=== PATIENT | male | born 1970 | race American Indian/Alaskan Native ===

== ENCOUNTER 2017-01-31 19:24 | Inpatient (IN) | payer MEDICAID, OTHER ==
[2017-01-31 19:24] VITALS: BMI 27.8
[2017-01-31 20:22] LABS: BASO # 0.1 K/uL (0.0-0.2); EOS # 0.1 K/uL (0.0-0.7); EOS % 2.3 % (0.0-4.0); HEMATOCRIT 43.7 % (35.0-51.0); LYMPH # 1.9 K/uL (1.0-4.3); LYMPH % 32.2 % (20.0-40.0); MEAN CELL VOLUME 89.5 fL (80.0-94.0); MEAN CORPUSCULAR HEMOGLOBIN 31.4 pg (27.0-31.0); MEAN PLATELET VOLUME 8.5 fL (7.2-11.7); MONO # 0.6 K/uL (0.0-0.8); MONO % 9.5 % (0.0-10.0); NRBC % 0.1 % (0.0-2.0); RED CELL DISTRIBUTION WIDTH 14.1 % (11.5-14.5)
[2017-01-31 20:55] LABS: CHLORIDE 98 mmol/L (98-107)
[2017-01-31 20:56] LABS: SODIUM 136 mmol/L (132-148)
[2017-01-31 20:58] LABS: GFR AFRICAN-AMERICAN > 60
[2017-01-31 20:59] LABS: ALB/GLOB RATIO 0.9 (1.0-2.1); ALKALINE PHOSPHATASE 74 U/L (38-126); ALT/SGPT 90 U/L (21-72); AST/SGOT 131 U/L (17-59); BLOOD UREA NITROGEN 13 mg/dL (9-20); CALCIUM 8.4 mg/dl (8.6-10.4); CARBON DIOXIDE 25 mmol/L (22-30); GLUCOSE,RANDOM 101 mg/dL (75-110); TOTAL PROTEIN 8.7 g/dL (6.3-8.3)
[2017-01-31 21:22] LABS: ALCOHOL SERUM 399 mg/dl (0-10)
--- NOTE | 2017-01-31 22:02 | C.PDOC ---
History Of Present Illness Pt is here requesting detox from alcohol and Heroin. Time Seen by Provider: 01/31/17 19:48 Chief Complaint (Nursing): Substance Abuse History Per: Patient History/Exam Limitations: intoxication Onset/Duration Of Symptoms: Days Current Symptoms Are (Timing): Still Present Suicide/Self Injury Attempted (Context): None Modifying Factor(s): Alcohol, Narcotics Severity: Moderate Associated Symptoms: denies: Suicidal Thoughts, Suicidal Plan Additional History Per: Prior Records Past Medical History Reviewed: Historical Data, Nursing Documentation, Vital Signs Vital Signs: Last Vital Signs Temp 98.6 F 02/01/17 06:15 Pulse 96 H 02/01/17 06:15 Resp 19 02/01/17 06:15 BP 154/95 H 02/01/17 06:15 Pulse Ox 96 02/01/17 06:15 - Medical History PMH: Anxiety, Depression, HTN, Hypercholesterolemia, Hyperlipidemia, Seizures ( absence seizures) - [facility] Procedures DETOXIFICATION SERVICES FOR SUBSTANCE ABUSE TREATMENT (03/07/15) INJECT/INFUSE ELECTROLYT (12/03/14) INJECT/INFUSE NEC (12/03/14) MEDS MGMT FOR SUBSTANCE ABUSE TREATMENT, OTH REPL MED (03/07/15) Family History: States: Unknown Family Hx - Social History Hx Tobacco Use: Yes Hx Alcohol Use: Yes Hx Substance Use: Yes (Snorts Heroin.) - Immunization History Hx Tetanus Toxoid Vaccination: No Hx Influenza Vaccination: No Hx Pneumococcal Vaccination: No Review Of Systems Constitutional: Negative for: Fever Cardiovascular: Negative for: Chest Pain Respiratory: Negative for: Shortness of Breath, Hemoptysis Musculoskeletal: Negative for: Neck Pain Neurological: Negative for: Weakness, Numbness Physical Exam - Physical Exam Appears: No Acute Distress, Other (AOB, intoxicated) Skin: Normal Color, Warm, Dry Head: Atraumatic, Normacephalic Eye(s): bilateral: PERRL Neck: Normal ROM, No Step Off Deformity, Supple Cardiovascular: Rhythm Regular Respiratory: Normal Breath Sounds, No Accessory Muscle Use Gastrointestinal/Abdominal: Soft Extremity: Normal ROM, No Deformity Neurological/Psych: Oriented x3, No Normal Speech (slurred), Normal Motor, Normal Sensation ED Course And Treatment - Laboratory Results Result Diagrams: 01/31/17 20:10 01/31/17 20:10 Interpretation Of Abnormal: Elevated alcohol level. O2 Sat by Pulse Oximetry: 96 Pulse Ox Interpretation: Normal Progress Note: Pt is medically stable for detox admission. Disposition Counseled Patient/Family Regarding: Studies Performed, Diagnosis - Disposition Disposition: HOSPITALIZED Disposition Time: 06:52 Condition: STABLE - Clinical Impression Clinical Impression: Alcohol use disorder, severe, dependence, Opioid use disorder, severe, dependence Decision To Admit - Pt Status Changed To: Hospital Disposition Of: Inpatient - Admit Certification Admit to Inpatient:: After my assessment, the patient will require hospitalization for at least two midnights. This is because of the severity of symptoms shown, intensity of services needed, and/or the medical risk in this patient being treated as an outpatient. - InPatient: Physician Admission Certification: I certify that this patient requires 2 or more midnights of care for the following reason:: Detox. - . Bed Request Type: Detox Admitting Physician: Jonny Canas Patient Diagnosis: Alcohol use disorder, severe, dependence, Opioid use disorder, severe, dependence
[2017-01-31 22:40] LABS: URINE BILIRUBIN NEGATIVE (NEGATIVE); URINE COLOR Straw (YELLOW); URINE GLUCOSE (UA) NORMAL (Normal); URINE KETONE NEGATIVE (NEGATIVE); URINE LEUKOCYTE ESTERASE NEG Leu/uL (Negative); URINE PROTEIN 2+ mg/dL (NEGATIVE); URINE UROBILINOGEN NORMAL mg/dL (0.2-1.0); WBC URINE < 1 /hpf (0-5)
[2017-01-31 22:43] LABS: URINE BLOOD TRACE (NEGATIVE)
--- NOTE | 2017-02-01 08:46 | PCM.BM ---
<Domi Canada - Last Filed: 02/01/17 08:43> Treatment Plan Problems - Problems identified on initial assessmt potential for alcohol withdrawals Date Initiated: 02/01/17 Assessment reference: NA Status: Active potential for opiate withdrawals Date Initiated: 02/01/17 Assessment reference: NA Status: Active Treatment assets and liabiliti Patient Assests: adapts well, cooperative, ADL independent, negotiates basic needs Patient Liabilities: substance abuse, other - Milieu Protocol Maintain good personal hygiene: daily Encourage regular showers, daily Remind patient to perform daily oral care, daily Assist patient to perform ADL's Conduct patient checks and document Observation sheet: Q15 minutes Maintain personal safety: every shift Educate patient to report safety concerns to staff, every shift Monitor environment for contraband/sharps Medication safety: Monitor for expected outcome, potential side effects: every shift, Assess barriers to learning: every shift, Assess readiness for medication education: every shift <Tree Wong - Last Filed: 02/02/17 23:49> - Diagnosis (1) Alcohol use disorder, severe, dependence Status: Acute Interventions: 02/02/17 23:49 * Assess 7x/week regarding severity of withdrawal * Educate regarding risks, benefits, side effects and alternatives of medications * Use Motivational Interviewing for abstinence * Use CBT for relapse prevention * Medication management for withdrawal symptoms * Encourage medication assisted treatment * (2) Opioid use disorder, severe, dependence Status: Acute Interventions: 02/02/17 23:49 * Assess 7x/week regarding severity of withdrawal * Educate regarding risks, benefits, side effects and alternatives of medications * Use Motivational Interviewing for abstinence * Use CBT for relapse prevention * Medication management for withdrawal symptoms * Encourage medication assisted treatment *
[2017-02-01] MEDS ORDERED: Buprenorphine Hydrochloride 2 mg SL ONE (08:53)
[2017-02-01] MEDS: Multiple Vitamins Tab PO SCH (10:43)
--- NOTE | 2017-02-01 13:48 | RAD ---
PROCEDURE: Radiographs of the Sacrum and Coccyx HISTORY: Fell on his sacrum last week. has pain COMPARISON: None available. TECHNIQUE: Frontal and lateral views of the sacrum and coccyx Noted- is increased concavity on lateral views of the superior L5 endplate ; less impressive on the frontal view. This could be prominent Schmorl's nodes indentation and projectional effects. A mild compression deformity of the superior endplate without gross retropulsion of ossific fragments into the spinal canal cannot be excluded. FINDINGS: BONES: Sacrum and coccyx alignment is within normal variation limits. No fracture or focal lesion. SACROILIAC JOINTS: Unremarkable. OTHER FINDINGS: None. IMPRESSION: The sacrococcygeal junction alignment is within normal variation limits. No definitive fracture of the sacrum or coccyx noted. Noted- is increased concavity on lateral views of the superior L5 endplate less impressive on the frontal view. This could be prominent Schmorl's nodes indentation and projectional effects. However a mild compression deformity of the superior endplate without gross retropulsion of ossific fragments into the spinal canal cannot be excluded. If the pay patient has outside studies -comparison would be helpful in assessing stability of this appearance of L5.
--- NOTE | 2017-02-01 13:50 | CP.PCM.CON ---
Addendum entered and electronically signed by Roula Gibbons DO 02/01/17 14: 06: Patient denies any history of absence seizures or any seizures at all. Original Note: <Roula Gibbons - Last Filed: 02/01/17 13:45> History of Present Illness - History of Present Illness History of Present Illness: CC: "my blood pressure is high" HPI: Patient is a 46 year old male with PMHx of alcohol abuse, heroin abuse, tobacco abuse, HTN and hyperlipidemia admitted to detox who has been experiencing high blood pressures. He says he does not take his BP at home. He does not take any antihypertensives at home although he says he is supposed to. Patient reports shakiness. Patient denies headache, blurry vision, chest pain, SOB, abdominal pain, diarrhea, nausea, vomiting, dysuria, hematuria. PMD: patient does not know name; he says he is on [address] in [place] PMHx: as above PSHx: denies Family Hx: grandmother had GA at 52, no CVA or CA in family Social History: smoked 1 pack of cigarettes per day for the past 13 years, drinks eight 24oz cans per day (last drink 6pm on 01/31), snorts 13 bags of heroin per day for 13 years (last snort 3pm on 01/31) Review of Systems - Constitutional Constitutional: Weakness. absent: Chills, Fever - EENT Eyes: absent: Blurred Vision, Change in Vision Ears: absent: Dizziness - Cardiovascular Cardiovascular: absent: Chest Pain - Respiratory Respiratory: absent: Dyspnea - Gastrointestinal Gastrointestinal: absent: Abdominal Pain, Nausea, Vomiting - Genitourinary Genitourinary: absent: Dysuria - Musculoskeletal Musculoskeletal: absent: Back Pain - Integumentary Integumentary: absent: Rash - Neurological Neurological: Weakness Additional comments: shakiness - Psychiatric Psychiatric: absent: Homicidal Ideation, Suicidal Ideation - Hematologic/Lymphatic Hematologic: absent: Easy Bleeding, Easy Bruising Past Patient History - Infectious Disease Hx of Infectious Diseases: None - Past Medical History & Family History Past Medical History?: Yes Pertinent Family History: grandmother had GA at 52, no CVA or CA in family - Past Social History Smoking Status: Heavy Smoker > 10 Cigarettes Daily Alcohol: > 2 Drinks/Day Drugs: Opiates Home Situation {Lives}: Other (girlfriend) - CARDIAC Hx Hypercholesterolemia: Yes Hx Hypertension: Yes - PULMONARY Hx Respiratory Disorders: No - NEUROLOGICAL Hx Seizures: Yes (absence seizures) - HEENT Hx HEENT Problems: No - RENAL Hx Chronic Kidney Disease: No - ENDOCRINE/METABOLIC Hx Endocrine Disorders: No - HEMATOLOGICAL/ONCOLOGICAL Hx Blood Disorders: No - INTEGUMENTARY Hx Dermatological Problems: No - MUSCULOSKELETAL/RHEUMATOLOGICAL Hx Musculoskeletal Disorders: No Hx Falls: Yes - GASTROINTESTINAL Hx Gastrointestinal Disorders: No - GENITOURINARY/GYNECOLOGICAL Hx Genitourinary Disorders: No - PSYCHIATRIC Hx Anxiety: Yes Hx Depression: Yes Hx Substance Use: Yes (Snorts Heroin.) - SURGICAL HISTORY Hx Surgeries: No - ANESTHESIA Hx Anesthesia: No Meds Allergies/Adverse Reactions: Allergies Allergy/AdvReac Type Severity Reaction Status Date / Time No Known Allergies Allergy Verified 01/31/17 19:47 - Medications Medications: Current Medications Amlodipine Besylate (Norvasc) 5 mg PO DAILY [facility] Last Admin: 02/01/17 09:40 Dose: 5 mg Chlordiazepoxide (Librium) 25 mg PO Q6 [facility] PRN Reason: Taper Stop: 02/05/17 11:59 Last Admin: 02/01/17 11:31 Dose: 25 mg Chlordiazepoxide (Librium) 25 mg PO Q4H PRN PRN Reason: Alcohol Withdrawal Clonidine HCl (Catapres) 0.1 mg PO Q4H PRN PRN Reason: Symptoms of alcohol withdrawl Last Admin: 02/01/17 11:32 Dose: 0.1 mg Folic Acid (Folic Acid) 1 mg PO DAILY [facility] Last Admin: 02/01/17 10:43 Dose: Not Given Hydrochlorothiazide (Microzide) 12.5 mg PO DAILY [facility] Ibuprofen (Motrin Tab) 600 mg PO Q6H PRN PRN Reason: Pain, moderate (4-7) Lisinopril (Zestril) 20 mg PO DAILY [facility] Last Admin: 02/01/17 12:39 Dose: 20 mg Methadone HCl (Methadone) 20 mg PO Q24H [facility] PRN Reason: Taper Stop: 02/06/17 09:59 Last Admin: 02/01/17 10:41 Dose: 20 mg Multivitamins (Hexavitamin) 1 tab PO DAILY [facility] Last Admin: 02/01/17 10:43 Dose: Not Given Nicotine (Nicoderm Cq) 1 patch TD DAILY [facility] Last Admin: 02/01/17 10:41 Dose: 1 patch Pantoprazole Sodium (Protonix Ec Tab) 40 mg PO DAILY [facility] Thiamine HCl (Vitamin B1 Tab) 100 mg PO DAILY [facility] Last Admin: 02/01/17 10:43 Dose: Not Given Trazodone HCl (Desyrel) 100 mg PO HS PRN PRN Reason: Insomnia Physical Exam - Constitutional Appears: Non-toxic, No Acute Distress - Head Exam Head Exam: NORMAL INSPECTION - Eye Exam Eye Exam: EOMI - ENT Exam ENT Exam: Mucous Membranes Moist - Respiratory Exam Respiratory Exam: Clear to Auscultation Bilateral, NORMAL BREATHING PATTERN. absent: Rales, Rhonchi, Wheezes - Cardiovascular Exam Cardiovascular Exam: REGULAR RHYTHM, +S1, +S2. absent: Gallop, Rubs, Systolic Murmur - GI/Abdominal Exam GI & Abdominal Exam: Normal Bowel Sounds, Soft. absent: Distended, Firm, Tenderness - Extremities Exam Extremities exam: Negative for: pedal edema - Neurological Exam Neurological exam: Alert, Oriented x3 Additional comments: neg. asterixis, + tremor - Psychiatric Exam Psychiatric exam: Normal Affect, Normal Mood - Skin Skin Exam: Normal Color, Warm Results - Vital Signs Recent Vital Signs: Last Vital Signs Temp 98.0 F 02/01/17 13:06 Pulse 100 H 02/01/17 13:06 Resp 18 02/01/17 13:06 BP 152/95 H 02/01/17 13:06 Pulse Ox 98 02/01/17 13:06 - Labs Result Diagrams: 01/31/17 20:10 01/31/17 20:10 Labs: Laboratory Results - last 24 hr 01/31/17 01/31/17 01/31/17 20:10 20:10 22:35 WBC 6.0 RBC 4.88 Hgb 15.3 Hct 43.7 MCV 89.5 MCH 31.4 H MCHC 35.0 RDW 14.1 Plt Count 132 MPV 8.5 Neut % (Auto) 55.0 Lymph % (Auto) 32.2 [place] % (Auto) 9.5 Eos % (Auto) 2.3 Baso % (Auto) 1.0 Neut # 3.3 Lymph # 1.9 [place] # 0.6 Eos # 0.1 Baso # 0.1 Sodium 136 Potassium 4.0 Chloride 98 Carbon Dioxide 25 Anion Gap 17 BUN 13 Creatinine 1.0 Est GFR ( Amer) > 60 Est GFR (Non-Af Amer) > 60 Random Glucose 101 Calcium 8.4 L Total Bilirubin 1.0 AST 131 H ALT 90 H D Alkaline Phosphatase 74 Total Protein 8.7 H Albumin 4.2 Globulin 4.5 H Albumin/Globulin Ratio 0.9 L Urine Color Straw Urine Clarity Clear Urine pH 5.0 Ur Specific [place] 1.005 Urine Protein 2+ H Urine Glucose (UA) Normal Urine Ketones Negative Urine Blood Trace H Urine Nitrate Negative Urine Bilirubin Negative Urine Urobilinogen Normal Ur Leukocyte Esterase Neg Urine WBC (Auto) < 1 Urine Opiates Screen Urine Methadone Screen Ur Barbiturates Screen Ur Phencyclidine Scrn Ur Amphetamines Screen U Benzodiazepines Scrn U Oth Cocaine Metabols U Cannabinoids Screen Alcohol, Quantitative 399 H 01/31/17 22:35 WBC RBC Hgb Hct MCV MCH MCHC RDW Plt Count MPV Neut % (Auto) Lymph % (Auto) [place] % (Auto) Eos % (Auto) Baso % (Auto) Neut # Lymph # [place] # Eos # Baso # Sodium Potassium Chloride Carbon Dioxide Anion Gap BUN Creatinine Est GFR ( Amer) Est GFR (Non-Af Amer) Random Glucose Calcium Total Bilirubin AST ALT Alkaline Phosphatase Total Protein Albumin Globulin Albumin/Globulin Ratio Urine Color Urine Clarity Urine pH Ur Specific [place] Urine Protein Urine Glucose (UA) Urine Ketones Urine Blood Urine Nitrate Urine Bilirubin Urine Urobilinogen Ur Leukocyte Esterase Urine WBC (Auto) Urine Opiates Screen Positive Urine Methadone Screen Negative Ur Barbiturates Screen Negative Ur Phencyclidine Scrn Negative Ur Amphetamines Screen Negative U Benzodiazepines Scrn Negative U Oth Cocaine Metabols Negative U Cannabinoids Screen Negative Alcohol, Quantitative Assessment & Plan - Assessment and Plan (Free Text) Assessment: Uncontrolled Hypertension Norvasc 5mg PO daily - increasing to Norvasc 10 daily Lisinopril 20mg PO daily started 02/01 Goal of SBP between 135 and 144 in next 24 hours (20-25% decrease in SBP/day) F/U EKG Transaminitis likely secondary to alcohol abuse 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 trend Hyperlipidemia F/U lipid panel Will continue to hold simvastatin as patient's LFTs are elevated Alcohol withdrawal Management as per Psych team Heroin withdrawal Management as per Psych team Nicotine withdrawal Management as per Psych team Prophylaxis Activity as tolerated Protonix 40mg PO daily <Borker,Alfreda V - Last Filed: 02/01/17 22:40> Meds - Medications Medications: Current Medications Al Hydrox/Mg Hydrox/Simethicone (Maalox 30 Ml) 30 ml PO TID PRN PRN Reason: Indigestion / Heartburn Amlodipine Besylate (Norvasc) 10 mg PO DAILY [facility] Benzocaine/Menthol (Cepacol Sore Throat) 1 shayy MT Q2 PRN PRN Reason: Sore Throat Last Admin: 02/01/17 22:21 Dose: 1 shayy Chlordiazepoxide (Librium) 25 mg PO Q6 [facility] PRN Reason: Taper Stop: 02/05/17 11:59 Last Admin: 02/01/17 17:12 Dose: 25 mg Chlordiazepoxide (Librium) 25 mg PO Q4H PRN PRN Reason: Alcohol Withdrawal Last Admin: 02/01/17 19:28 Dose: 25 mg Clonidine HCl (Catapres) 0.1 mg PO Q4H PRN PRN Reason: Symptoms of alcohol withdrawl Last Admin: 02/01/17 17:12 Dose: 0.1 mg Dicyclomine HCl (Bentyl) 10 mg PO Q6H PRN PRN Reason: spasms Last Admin: 02/01/17 19:55 Dose: 10 mg Folic Acid (Folic Acid) 1 mg PO DAILY [facility] Last Admin: 02/01/17 10:43 Dose: Not Given Ibuprofen (Motrin Tab) 600 mg PO Q6H PRN PRN Reason: Pain, moderate (4-7) Lisinopril (Zestril) 20 mg PO DAILY [facility] Last Admin: 02/01/17 12:39 Dose: 20 mg Loperamide HCl (Imodium) 2 mg PO Q8 PRN PRN Reason: Diarrhea Last Admin: 02/01/17 19:55 Dose: 2 mg Methadone HCl (Methadone) 20 mg PO Q24H [facility] PRN Reason: Taper Stop: 02/06/17 09:59 Last Admin: 02/01/17 10:41 Dose: 20 mg Multivitamins (Hexavitamin) 1 tab PO DAILY [facility] Last Admin: 02/01/17 10:43 Dose: Not Given Nicotine (Nicoderm Cq) 1 patch TD DAILY [facility] Last Admin: 02/01/17 10:41 Dose: 1 patch Ondansetron HCl (Zofran Tab) 4 mg PO Q8 PRN PRN Reason: Nausea/Vomiting Last Admin: 02/01/17 19:55 Dose: 4 mg Pantoprazole Sodium (Protonix Ec Tab) 40 mg PO DAILY [facility] Thiamine HCl (Vitamin B1 Tab) 100 mg PO DAILY [facility] Last Admin: 02/01/17 10:43 Dose: Not Given Trazodone HCl (Desyrel) 100 mg PO HS PRN PRN Reason: Insomnia Results - Vital Signs Recent Vital Signs: Last Vital Signs Temp 98.3 F 02/01/17 19:33 Pulse 120 H 02/01/17 20:57 Resp 20 02/01/17 20:57 BP 156/103 H 02/01/17 20:57 Pulse Ox 98 02/01/17 19:33 - Labs Result Diagrams: 01/31/17 20:10 01/31/17 20:10 Labs: Laboratory Results - last 24 hr 01/31/17 01/31/17 02/01/17 22:35 22:35 21:55 Urine Color Straw Urine Clarity Clear Urine pH 5.0 Ur Specific [place] 1.005 Urine Protein 2+ H Urine Glucose (UA) Normal Urine Ketones Negative Urine Blood Trace H Urine Nitrate Negative Urine Bilirubin Negative Urine Urobilinogen Normal Ur Leukocyte Esterase Neg Urine WBC (Auto) < 1 Urine Opiates Screen Positive Urine Methadone Screen Negative Ur Barbiturates Screen Negative Ur Phencyclidine Scrn Negative Ur Amphetamines Screen Negative U Benzodiazepines Scrn Negative U Oth Cocaine Metabols Negative U Cannabinoids Screen Negative Grp A Beta Strep Ag Negative Attending/Attestation - Attestation I have personally seen and examined this patient.: Yes I have fully participated in the care of the patient.: Yes I have reviewed all pertinent clinical information: Yes Notes (Text): Patient seen, examined, and case discussed with day-time resident. Patient seen at approximately 12:10PM on the detox unit. Medicine consulted for uncontrolled blood pressure. Patient has history of hypertension, noncompliant on anti- hypertensives. Patient is currently on the detox unit for alcohol and heroin withdrawal; patient has received two doses of Clonidine 0.1mg PO, Librium, Ativan prior to my arrival. Per review hx of absence seizures, but patient denies at bedside. Patient's repeat blood presure in 150/90s which is improved from 180s/110s from earlier this morning. Patient denies headache, denies chest pains, denies palpitations, reports he urinates and has proper bowel movement. Last alcohol consumed around 6pm and heroin use around 3am. Patient reports he takes "bricks" of [place] heroin. Assessment/Plan 1) Uncontrolled Hypertension * History of noncompliance on PO antihypertensives * Given two doses of Norvasc 5mg today--> Increased to Norvasc 10 daily tomorrow * Lisinopril 20mg PO daily started 02/01 * Goal of SBP between 135 and 144 in next 24 hours (20-25% decrease in SBP/day) * F/U EKG check for LVH in light of hypertension * Held thiazide diuretic given patient appears clinically dry * Note: patient is also on Clonidine 0.1mg PO Q4 PRN symptoms of withdrawal 2) Transaminitis * likely secondary to alcohol abuse * F/U hepatitis panel * Monitor trend * Note: patient is on librium taper for alcohol withdrawal 3) Hyperlipidemia * F/U lipid panel * Will continue to hold simvastatin as patient's LFTs are elevated 4) Alcohol withdrawal * Management as per Psych team (librium taper) 5) Heroin withdrawal * Management as per Psych team (methadone taper) 6) Nicotine withdrawal * Management as per Psych team 7) Prophylaxis * Activity as tolerated * Protonix 40mg PO daily
[2017-02-01] MEDS ORDERED: Aluminum Hydroxide/Magnesium Hydroxide Susp (30 mL) PO PRN (19:48)
[2017-02-01] MEDS ORDERED: Benzocaine/Menthol (Cepacol) Lozenge MT PRN (21:55)
--- NOTE | 2017-02-01 22:01 | CP.PCM.PN ---
Subjective - Date & Time of Evaluation Date of Evaluation: 02/01/17 Time of Evaluation: 21:57 - Subjective Subjective: Patient was seen and examined at bedside. Patient states he just started to have a sore throat. States it hurts when he swallows. Patient states he did not eat his dinner and has been drinking some orange juice. He denies any allergies or fever. Objective - Vital Signs/Intake and Output Vital Signs (last 24 hours): Temp Pulse Resp BP Pulse Ox 98.3 F 120 H 20 156/103 H 98 02/01/17 19:33 02/01/17 20:57 02/01/17 20:57 02/01/17 20:57 02/01/17 19:33 - Medications Medications: Current Medications Al Hydrox/Mg Hydrox/Simethicone (Maalox 30 Ml) 30 ml PO TID PRN PRN Reason: Indigestion / Heartburn Amlodipine Besylate (Norvasc) 10 mg PO DAILY [facility] Benzocaine/Menthol (Cepacol Sore Throat) 1 shayy MT Q2 PRN PRN Reason: Sore Throat Chlordiazepoxide (Librium) 25 mg PO Q6 [facility] PRN Reason: Taper Stop: 02/05/17 11:59 Last Admin: 02/01/17 17:12 Dose: 25 mg Chlordiazepoxide (Librium) 25 mg PO Q4H PRN PRN Reason: Alcohol Withdrawal Last Admin: 02/01/17 19:28 Dose: 25 mg Clonidine HCl (Catapres) 0.1 mg PO Q4H PRN PRN Reason: Symptoms of alcohol withdrawl Last Admin: 02/01/17 17:12 Dose: 0.1 mg Dicyclomine HCl (Bentyl) 10 mg PO Q6H PRN PRN Reason: spasms Last Admin: 02/01/17 19:55 Dose: 10 mg Folic Acid (Folic Acid) 1 mg PO DAILY [facility] Last Admin: 02/01/17 10:43 Dose: Not Given Ibuprofen (Motrin Tab) 600 mg PO Q6H PRN PRN Reason: Pain, moderate (4-7) Lisinopril (Zestril) 20 mg PO DAILY [facility] Last Admin: 02/01/17 12:39 Dose: 20 mg Loperamide HCl (Imodium) 2 mg PO Q8 PRN PRN Reason: Diarrhea Last Admin: 02/01/17 19:55 Dose: 2 mg Methadone HCl (Methadone) 20 mg PO Q24H [facility] PRN Reason: Taper Stop: 02/06/17 09:59 Last Admin: 02/01/17 10:41 Dose: 20 mg Multivitamins (Hexavitamin) 1 tab PO DAILY [facility] Last Admin: 02/01/17 10:43 Dose: Not Given Nicotine (Nicoderm Cq) 1 patch TD DAILY [facility] Last Admin: 02/01/17 10:41 Dose: 1 patch Ondansetron HCl (Zofran Tab) 4 mg PO Q8 PRN PRN Reason: Nausea/Vomiting Last Admin: 02/01/17 19:55 Dose: 4 mg Pantoprazole Sodium (Protonix Ec Tab) 40 mg PO DAILY [facility] Thiamine HCl (Vitamin B1 Tab) 100 mg PO DAILY [facility] Last Admin: 02/01/17 10:43 Dose: Not Given Trazodone HCl (Desyrel) 100 mg PO HS PRN PRN Reason: Insomnia - Labs Labs: 01/31/17 20:10 01/31/17 20:10 - Constitutional Appears: In Acute Distress - Head Exam Head Exam: ATRAUMATIC, NORMAL INSPECTION, NORMOCEPHALIC - ENT Exam ENT Exam: Mucous Membranes Moist. absent: Normal Oropharynx (red, erythematous , no pus visualized but difficult to see as patient kept gagging with tongue depressor ) - Neck Exam Neck Exam: Lymphadenopathy. absent: Tenderness - Respiratory Exam Respiratory Exam: Clear to Ausculation Bilateral, NORMAL BREATHING PATTERN. absent: Rales, Rhonchi, Wheezes - Cardiovascular Exam Cardiovascular Exam: REGULAR RHYTHM, +S1, +S2 - GI/Abdominal Exam GI & Abdominal Exam: Soft, Normal Bowel Sounds. absent: Tenderness - Extremities Exam Extremities Exam: Normal Inspection. absent: Pedal Edema, Tenderness - Neurological Exam Neurological Exam: Alert, Awake, Oriented x3 Assessment and Plan - Assessment and Plan (Free Text) Assessment: Sore Throat - Cepacol Sore Throat PRN - f/u x-ray of neck soft tissue - f/u rapid strep - Recommend possible ENT consult if pain progresses Case discussed with Dr. Katerina Le, PGY-1
[2017-02-02 08:41] LABS: BASO # 0.1 K/uL (0.0-0.2); BASO % 0.7 % (0.0-2.0); EOS % 0.3 % (0.0-4.0); HEMATOCRIT 56.6 % (35.0-51.0); LYMPH # 1.1 K/uL (1.0-4.3); LYMPH % 8.8 % (20.0-40.0); MEAN CELL VOLUME 90.5 fL (80.0-94.0); MEAN CORPUSCULAR HEMOGLOBIN 31.4 pg (27.0-31.0); MEAN CORPUSCULAR HGB CONC 34.7 g/dL (33.0-37.0); MEAN PLATELET VOLUME 9.6 fL (7.2-11.7); MONO # 1.3 K/uL (0.0-0.8); MONO % 10.2 % (0.0-10.0); NRBC % 0.2 % (0.0-2.0); PLATELET COUNT 163 K/uL (130-400); RED CELL DISTRIBUTION WIDTH 13.8 % (11.5-14.5)
[2017-02-02 08:53] LABS: WHITE BLOOD COUNT 12.2 K/uL (4.8-10.8)
[2017-02-02 09:05] LABS: POTASSIUM 3.9 mmol/L (3.6-5.2)
[2017-02-02 09:07] LABS: ALB/GLOB RATIO 0.9 (1.0-2.1); BILIRUBIN,TOTAL 2.5 mg/dL (0.2-1.3); TOTAL PROTEIN 8.8 g/dL (6.3-8.3)
[2017-02-02 09:08] LABS: CALCIUM 9.7 mg/dl (8.6-10.4)
[2017-02-02 09:34] LABS: NEUTROPHIL 78 % (50-75); REACTIVE LYMPHOCYTES 2 % (0-0); TOTAL CELLS COUNTED 100
[2017-02-02] MEDS ORDERED: Pantoprazole 40 mg EC Tab PO SCH (10:00)
--- NOTE | 2017-02-02 10:01 | RAD ---
PROCEDURE: Radiographs of the neck (soft tissue). HISTORY: sore throat COMPARISON: None. TECHNIQUE: Frontal and Lateral Radiographs of the neck, optimized for soft tissue visualization. FINDINGS: SOFT TISSUES: The epiglottis appears thickened and epiglottitis is not completely excluded. Clinically correlate. The frontal view appears normal nevertheless. The pharyngeal airway appears widely patent as well as the trachea and upper mid larynx level. No definitive retained radiodense foreign body is appreciated this time. Clinically correlate further. CT is available for further evaluation of clinically warranted (with contrast). CERVICAL SPINE: Multilevel cervical spondylosis is incidentally noted. OTHER FINDINGS: None. IMPRESSION: A thickened epiglottis is suggested in the lateral view only. Clinically correlate for potential epiglottitis. CT is available for further characterization if clinically warranted. Remainder the examination is unremarkable.
[2017-02-02] MEDS: Multiple Vitamins Tab PO SCH (10:32)
[2017-02-02] MEDS ORDERED: Piperacill/Tazo 2.25gm in Dex 2.25 GM/50 ML BAG IVPB STA (13:08)
--- NOTE | 2017-02-02 13:13 | PCM.PYCHPN ---
Psychiatric Progress Note - Psychiatric Progress Note Patient seen today, length of contact: 16 min Patient Chief Complaint: "Not well" Problems Identified/Issues Discussed: The pt is seen, chart reviewed, case discussed with staff. The pt is compliant with medications and reports no side-effects. Symptoms are improving but needs more time to stabilize. After care discussed, support and psychoeducation given. However he is transferred to medicine due to likely clot And last night he had many more wdw sxs and so he got 2 more 5 mg methaodne but he likely threw up one of them Medication Change: Yes Medical Record Reviewed: Yes Mental Status Examination - Cognitive Function Orientation: Person, Place, Situation, Time Memory: Intact Attention: WNL Concentration: Poor Association: WNL Fund of Knowledge: WNL - Mood Mood: Anxious - Affect Affect: Constricted - Speech Speech: Appropriate - Formal Thought Process Formal Thought Process: No Impairment - Suicidal Ideation Suicidal Ideation: No - Homicidal Ideation Homicidal Ideation: No Goal/Treatment Plan - Goal/Treatment Plan Need for Continued Stay: Discharge may exacerbated symptoms, Severe functional impairment, Other (medical) Progress Toward Problem(s) and Goals/Treatment Plan: Methadone detox adjusted As needed medications Attend groups and activities Supportive therapy and psychoeducation [place] for abstinence CBT for relapse prevention Encourage MAT Refer to rehab or IOP Attend self-help groups as well
[2017-02-02 14:14] LABS: HEMATOCRIT 56.3 % (35.0-51.0); MEAN CELL VOLUME 90.8 fL (80.0-94.0); MEAN CORPUSCULAR HEMOGLOBIN 31.1 pg (27.0-31.0); MEAN CORPUSCULAR HGB CONC 34.3 g/dL (33.0-37.0); MEAN PLATELET VOLUME 9.8 fL (7.2-11.7); RED CELL DISTRIBUTION WIDTH 13.9 % (11.5-14.5); WHITE BLOOD COUNT 13.2 K/uL (4.8-10.8)
[2017-02-02 14:32] LABS: POTASSIUM 3.6 mmol/L (3.6-5.2)
[2017-02-02 14:34] LABS: BILIRUBIN,TOTAL 2.4 mg/dL (0.2-1.3); TOTAL PROTEIN 8.9 g/dL (6.3-8.3)
[2017-02-02 14:35] LABS: CALCIUM 9.8 mg/dl (8.6-10.4)
[2017-02-02 15:01] LABS: ALB/GLOB RATIO 0.9 (1.0-2.1)
[2017-02-02] MEDS: Sodium Chloride 0.9% 1,000 ML IV SCH ×2 (15:23→23:15)
[2017-02-02] MEDS ORDERED: Sodium Chloride 0.9% 1,000 ML IV ONE (18:01)
--- NOTE | 2017-02-02 18:12 | CP.PCM.PN ---
<Alexey Lakhani - Last Filed: 02/02/17 18:08> Subjective - Date & Time of Evaluation Date of Evaluation: 02/02/17 Time of Evaluation: 13:30 - Subjective Subjective: Patient has been seen and examined. Patient reported episodes of non-bloody diarrhea and vomiting(7 times) last night. Currently complains of mild left sided abdominal pain. Continues to complain of sore throat and dysphagia which have both improved from yesterday. Denies any SOB, Chills, Fever. Objective - Vital Signs/Intake and Output Vital Signs (last 24 hours): Temp Pulse Resp BP Pulse Ox 98.4 F 102 H 18 93/65 L 97 02/02/17 13:36 02/02/17 13:36 02/02/17 13:36 02/02/17 13:36 02/02/17 13:36 Intake and Output: 02/02/17 02/02/17 06:59 18:59 Intake Total 100 Balance 100 - Medications Medications: Current Medications Al Hydrox/Mg Hydrox/Simethicone (Maalox 30 Ml) 30 ml PO TID PRN PRN Reason: Indigestion / Heartburn Amlodipine Besylate (Norvasc) 5 mg PO DAILY [facility] Benzocaine/Menthol (Cepacol Sore Throat) 1 shayy MT Q2 PRN PRN Reason: Sore Throat Last Admin: 02/01/17 22:21 Dose: 1 shayy Chlordiazepoxide (Librium) 25 mg PO Q4H PRN PRN Reason: Alcohol Withdrawal Last Admin: 02/02/17 15:28 Dose: 25 mg Chlordiazepoxide (Librium) 25 mg PO TID [facility] PRN Reason: Taper Stop: 02/05/17 02:59 Dicyclomine HCl (Bentyl) 10 mg PO Q6H PRN PRN Reason: spasms Last Admin: 02/01/17 19:55 Dose: 10 mg Folic Acid (Folic Acid) 1 mg PO DAILY [facility] Sodium Chloride (Sodium Chloride 0.9%) 1,000 mls @ 100 mls/hr IV .Q10H [facility] Last Admin: 02/02/17 15:23 Dose: 100 mls/hr Sodium Chloride (Sodium Chloride 0.9%) 1,000 mls @ 1,000 mls/hr IV .Q1H ONE Stop: 02/02/17 19:00 Piperacillin Sod/Tazobactam Sod (Zosyn 2.25 Gm Iv Premix) 2.25 gm in 50 mls @ 100 mls/hr IVPB Q8H [facility] Ibuprofen (Motrin Tab) 600 mg PO Q6H PRN PRN Reason: Pain, moderate (4-7) Loperamide HCl (Imodium) 2 mg PO Q8 PRN PRN Reason: Diarrhea Methadone HCl (Methadone) 15 mg PO Q24H [facility] PRN Reason: Taper Stop: 02/06/17 09:59 Last Admin: 02/02/17 10:34 Dose: 15 mg Multivitamins (Hexavitamin) 1 tab PO DAILY [facility] Nicotine (Nicoderm Cq) 1 patch TD DAILY [facility] Last Admin: 02/02/17 10:31 Dose: 1 patch Ondansetron HCl (Zofran Tab) 4 mg PO Q8 PRN PRN Reason: Nausea/Vomiting Pantoprazole Sodium (Protonix Ec Tab) 40 mg PO DAILY [facility] Thiamine HCl (Vitamin B1 Tab) 100 mg PO DAILY [facility] Trazodone HCl (Desyrel) 100 mg PO HS PRN PRN Reason: Insomnia - Labs Labs: 02/02/17 14:06 02/02/17 14:06 - Constitutional Appears: Non-toxic, Unkempt - Head Exam Head Exam: ATRAUMATIC, NORMAL INSPECTION, NORMOCEPHALIC - Eye Exam Eye Exam: EOMI, Normal appearance - ENT Exam ENT Exam: Mucous Membranes Dry - Respiratory Exam Respiratory Exam: Wheezes (b/l, expiratory, upper lungs. ), NORMAL BREATHING PATTERN. absent: Accessory Muscle Use - Cardiovascular Exam Cardiovascular Exam: RRR, +S1, +S2 - GI/Abdominal Exam GI & Abdominal Exam: Soft, Tenderness (LUQ, LLQ) - Extremities Exam Extremities Exam: absent: Pedal Edema - Psychiatric Exam Psychiatric exam: Depressed, Flat Affect - Skin Skin Exam: Normal Color Assessment and Plan - Assessment and Plan (Free Text) Assessment: 46 year old male admitted to detox unit for Alcohol/Heroin abuse/intoxication/ withdrawal. Medicine team was consulted on this case for evaluation and treatment of uncontrolled HTN. Plan: Uncontrolled Hypertension (resolved) decreased Norvasc from 10mg-5mg Daily discontinued Lisinopril due to patient being normotensive. Goal of SBP between 135 and 144 in next 24 hours (20-25% decrease in SBP/day) EKG read pending. Preliminary read shows no acute ST-T wave changes Sore Throat Rapid Strep (-) Soft Tissue Neck X-ray showed Possible Epiglottitis ENT consulted (Dr. Solorzano) throat culture pending results Cepacol Lozenges Started Zosyn Empirically (Day 1 today) Leukocytosis Stress reaction vs infection Throat cultures are pending Portable CXR pending read. On preliminary read I see no acute disease process Urine negative for Leuk Es and Nitrates Consider blood cultures Elevated HGB/HCT -HGB 19.7 and 19.3 today -like hemoconcentrated due to dehydration -transferred to floor -IV fluids Transaminitis (improving) likely secondary to alcohol abuse Hepatitis panel negative trending down Hyperlipidemia Lipid Panel: TG-161, Cholesterol - 313, LDL - 187, HDL - 125 Will continue to hold simvastatin as patient's LFTs are elevated Alcohol withdrawal Management as per Psych team Heroin withdrawal Management as per Psych team Nicotine withdrawal Management as per Psych team Prophylaxis Activity as tolerated Protonix 40mg PO daily Patient seen and discussed with Attending Alexey Lakhani PGY1 Dispo: We will continue to follow. <Alfreda Harman V - Last Filed: 02/02/17 21:37> Objective - Vital Signs/Intake and Output Vital Signs (last 24 hours): Temp Pulse Resp BP Pulse Ox 98.6 F 98 H 20 109/76 98 02/02/17 16:00 02/02/17 16:00 02/02/17 16:00 02/02/17 16:00 02/02/17 16:00 Intake and Output: 02/02/17 02/03/17 18:59 06:59 Intake Total 100 Balance 100 - Medications Medications: Current Medications Acetaminophen (Tylenol 325mg Tab) 650 mg PO Q6 PRN PRN Reason: Pain, moderate (4-7) Al Hydrox/Mg Hydrox/Simethicone (Maalox 30 Ml) 30 ml PO TID PRN PRN Reason: Indigestion / Heartburn Amlodipine Besylate (Norvasc) 5 mg PO DAILY [facility] Benzocaine/Menthol (Cepacol Sore Throat) 1 shayy MT Q2 PRN PRN Reason: Sore Throat Last Admin: 02/01/17 22:21 Dose: 1 shayy Chlordiazepoxide (Librium) 25 mg PO Q4H PRN PRN Reason: Alcohol Withdrawal Last Admin: 02/02/17 15:28 Dose: 25 mg Chlordiazepoxide (Librium) 25 mg PO TID [facility] PRN Reason: Taper Stop: 02/05/17 02:59 Last Admin: 02/02/17 18:14 Dose: 25 mg Dicyclomine HCl (Bentyl) 10 mg PO Q6H PRN PRN Reason: spasms Last Admin: 02/01/17 19:55 Dose: 10 mg Folic Acid (Folic Acid) 1 mg PO DAILY [facility] Sodium Chloride (Sodium Chloride 0.9%) 1,000 mls @ 100 mls/hr IV .Q10H [facility] Last Admin: 02/02/17 15:23 Dose: 100 mls/hr Piperacillin Sod/Tazobactam Sod (Zosyn 2.25 Gm Iv Premix) 2.25 gm in 50 mls @ 100 mls/hr IVPB Q8H [facility] Last Admin: 02/02/17 20:39 Dose: 100 mls/hr Loperamide HCl (Imodium) 2 mg PO Q8 PRN PRN Reason: Diarrhea Methadone HCl (Methadone) 15 mg PO Q24H [facility] PRN Reason: Taper Stop: 02/06/17 09:59 Last Admin: 02/02/17 10:34 Dose: 15 mg Multivitamins (Hexavitamin) 1 tab PO DAILY [facility] Nicotine (Nicoderm Cq) 1 patch TD DAILY [facility] Last Admin: 02/02/17 10:31 Dose: 1 patch Ondansetron HCl (Zofran Tab) 4 mg PO Q8 PRN PRN Reason: Nausea/Vomiting Pantoprazole Sodium (Protonix Ec Tab) 40 mg PO DAILY [facility] Thiamine HCl (Vitamin B1 Tab) 100 mg PO DAILY [facility] Trazodone HCl (Desyrel) 100 mg PO HS PRN PRN Reason: Insomnia - Labs Labs: 02/02/17 14:06 02/02/17 14:06 Attending/Attestation - Attestation I have personally seen and examined this patient.: Yes I have fully participated in the care of the patient.: Yes I have reviewed all pertinent clinical information, including history, physical exam and plan: Yes Notes (Text): Patient seen, examined, and case discussed with day-time resident. Patient seen this morning on the detox floor. Patient is more awake and alert, reporting sore throat at bedside. Patient denies cough, denies coryza, reports vaccinations are uptodate, patient is NOT tripoding, able to articulate, speech does not appear impaired nor muffled. patient is on Librum and Methadone taper for both alcohol and heroin withdrawal respectively. Patient's soft tissue neck xray reported thicken epiglottis is suggested in lateral view only. CT is available for further characterization. Discussed case with ENT, Dr Solorzano, recommended for first Dose: decadron 10mg IV X1 and Zosyn IV stat. Patient transferred to regular/medical floor and started for IV antibiotics and IV fluids. ENT evaluated the patient, patient refused flexible larynoscopy with ENT. CT neck ordered. CT neck resulted later in evening indicating no epiglottis and tonsillitis; informed ENT in regards to CT result this evening. Discontinue anti-hypertensive medications (did not receive today) given patient' s blood pressure normalized rather quickly; d/c Clonidine PRN and held antihypertensive medications. patient is currently on IV abx. Patient's blood works this morning appeared abnormal and repeat again this morning; suspecting hemoconcentration. patient appears dehydrated and is having diarrhea likely due to heroin withdrawal. patient unable to have adequate PO intake of fluid given throat pain. Will start IV abx. Nephrology consult given acute rise in creatinine; will come and evaluate the patient. Assessment/Plan 1) Uncontrolled Hypertension-->normalized * History of noncompliance on PO antihypertensives * d/c anti-hypertensive and clonidine prn given blood pressure normalized quickly over twenty hours * Patient is on IV fluids-->appears dehydrated and fluid loss (diarrhea) secondary to withdrawal and inadequate PO intake * F/U EKG check for LVH in light of hypertension * Held thiazide diuretic given patient appears clinically dry 2) Transaminitis * likely secondary to alcohol abuse * hepatitis panel: negative * Monitor trend * Note: patient is on librium taper for alcohol withdrawal * Alcohol elevated 399 on admission 3) Hyperlipidemia * Lipid panel appears abnormal; will repeat when patient clinically hydrated * Will continue to hold simvastatin as patient's LFTs are elevated 4) Sore Throat; URI * ENT (Dr. Solorzano) on the case * Patient's soft tissue neck xray reported thicken epiglottis is suggested in lateral view only. CT is available for further characterization. * patient made NPO in light of soft tissue xray findings * Patient received first dose of Decadron 10mg IV x1, Zosyn (renal dose) X1 * Patient transferred out from the detox unit and on the regular floors; started on IV abx and IV fluids. * Rapid strep: negative * Repeat CT neck: negative for epiglottis/tonsillitis 5) Polycythemia * Possible hemoconcentration * Patient appears clinically dehydrated and having diarrhea losses * Labs values repeated show similar trend * Will check again in AM tomorrow after patient has received IV fluid 6) Acute renal Failure * Nephrology (Dr. Darron Walker) on consult-->discussed case with and will evaluate patient * Possible hemoconcentration * Patient appears clinically dehydrated and having diarrhea losses * Labs values repeated show similar trend * Will check again in AM tomorrow after patient has received IV fluid 7) Alcohol withdrawal * Management as per Psych team (librium taper) 8) Heroin withdrawal * Management as per Psych team (methadone taper) 9) Nicotine withdrawal * Management as per Psych team 10) Prophylaxis * Activity as tolerated * Protonix 40mg PO daily
[2017-02-02 18:34] VITALS: RESP 20
[2017-02-02] MEDS ORDERED: Piperacill/Tazo 3.375gm in Dex 3.375 GM/50 ML BAG IVPB SCH (19:30)
--- NOTE | 2017-02-02 19:56 | CT ---
EXAM: CT Neck Without Intravenous Contrast EXAM DATE/TIME: Exam ordered 02/02/2017 5:31 PM CLINICAL HISTORY: 46 years old, male; Pain; Throat pain; Additional info: Rule out epiglotitis TECHNIQUE: Axial computed tomography images of the neck without intravenous contrast. All CT scans at this facility use one or more dose reduction techniques, viz.: automated exposure control; ma/kV adjustment per patient size (including targeted exams where dose is matched to indication; i.e. head); or iterative reconstruction technique. Coronal and sagittal reformatted images were created and reviewed. COMPARISON: No relevant prior studies available. FINDINGS: Nasopharynx: Unremarkable. Oropharynx: Unremarkable. No significant tonsillar enlargement. Hypopharynx: Unremarkable. Larynx: Unremarkable. Normal epiglottis. Trachea: Unremarkable. Retropharyngeal space: Unremarkable. Submandibular/parotid glands: Unremarkable. Glands are normal in size. Thyroid: Unremarkable. No enlarged or calcified nodules. Bones/joints: There is a defect noted within the bone of the left anterior maxillary alveolar ridge adjacent to a tooth implant. No acute fracture. Soft tissues: Unremarkable. Vasculature: No acute findings. Lymph nodes: There are 2 less than 5 mm submental lymph nodes. There are subcentimeter perisubmandibular lymph nodes. There a few scattered posterior cervical lymph nodes measuring under a centimeter. Sinuses:Mild mucosal thickening is noted within the ethmoid air cells bilaterally. Lung apices: Unremarkable as visualized. IMPRESSION: 1. No evidence of low epiglottitis or tonsillitis. 2. Bony defect/resorption noted surrounding a implanted tooth in the left upper maxillary alveolar ridge. Bone defect could be postsurgical in nature or related to infection. Clinical correlation suggested. 3. Mucosal thickening in the ethmoid air cells bilaterally Images were attached to this report and are available at [email or web address]
[2017-02-02] MEDS: Piperacill/Tazo 2.25gm in Dex 2.25 GM/50 ML BAG IVPB SCH (20:39)
--- NOTE | 2017-02-02 23:12 | PCM.PSYCH ---
Initial Psychiatric Evaluation - Initial Psychiatric Evaluation Type of Admission: Voluntary Legal Status: Capacity Chief Complaint (in patient's own words): ""Heroin" History of Present Illness and Precipitating Events: THe pt is seen, chart reviewed and case discussed He is a 46 yo AAM, w 2 children, living with GF and is unemployed He uses 12-13 bags i.n. x 10 months but he first started when he was 12 y/o He drinks alcohol 9-10 of the 24 oz beers since age 17 He had abused xanax in the past Smokes 1 ppd cigarettes He denies psych sx He was in detox 4x and [facility] once in the past Past psych hx: Denies Medical hx: Back pain, HTN, high choles. Family psych hx: substance abuse in parents Current Medications: Active Medications Generic Name Dose Route Start Last Admin Trade Name Freq PRN Reason Stop Dose Admin Acetaminophen 650 mg 02/02/17 19:49 Tylenol 325mg Tab PO Q6 PRN Pain, moderate (4-7) Al Hydrox/Mg Hydrox/Simethicone 30 ml 02/01/17 19:48 Maalox 30 Ml PO TID PRN Indigestion / Heartburn Amlodipine Besylate 5 mg 02/03/17 10:00 Norvasc PO DAILY [facility] Benzocaine/Menthol 1 shayy 02/01/17 21:55 02/01/17 22:21 Cepacol Sore Throat MT 1 shayy Q2 PRN Administration Sore Throat Chlordiazepoxide 25 mg 02/02/17 14:57 02/02/17 15:28 Librium PO 25 mg Q4H PRN Administration Alcohol Withdrawal Chlordiazepoxide 25 mg 02/02/17 18:00 02/02/17 18:14 Librium PO 02/05/17 02:59 25 mg TID [facility] Administration Taper Dicyclomine HCl 10 mg 02/01/17 19:49 02/01/17 19:55 Bentyl PO 10 mg Q6H PRN Administration spasms Folic Acid 1 mg 02/03/17 10:00 Folic Acid PO DAILY [facility] Sodium Chloride 1,000 mls @ 100 mls/hr 02/02/17 13:15 02/02/17 15:23 Sodium Chloride 0.9% IV 100 mls/hr .Q10H [facility] Administration Piperacillin Sod/Tazobactam Sod 2.25 gm in 50 mls @ 100 mls/hr 02/02/17 19:00 02/02/17 20:39 Zosyn 2.25 Gm Iv Premix IVPB 100 mls/hr Q8H [facility] Administration Loperamide HCl 2 mg 02/02/17 15:13 Imodium PO Q8 PRN Diarrhea Methadone HCl 15 mg 02/01/17 10:00 02/02/17 10:34 Methadone PO 02/06/17 09:59 15 mg Q24H [facility] Administration Taper Multivitamins 1 tab 02/03/17 10:00 Hexavitamin PO DAILY [facility] Nicotine 1 patch 02/01/17 10:30 02/02/17 10:31 Nicoderm Cq TD 1 patch DAILY [facility] Administration Ondansetron HCl 4 mg 02/02/17 15:13 Zofran Tab PO Q8 PRN Nausea/Vomiting Pantoprazole Sodium 40 mg 02/03/17 10:00 Protonix Ec Tab PO DAILY [facility] Thiamine HCl 100 mg 02/03/17 10:00 Vitamin B1 Tab PO DAILY [facility] Trazodone HCl 100 mg 02/01/17 08:52 02/02/17 22:22 Desyrel PO 100 mg HS PRN Administration Insomnia Past Psychiatric History - Past Psychiatric History Previous Treatment History: None Pertinent Medical Hx (Current Medical&Sleep Prob, Allergies): Allergies Allergy/AdvReac Type Severity Reaction Status Date / Time No Known Allergies Allergy Verified 01/31/17 19:47 Folic Acid 1 mg PO DAILY 12/03/14 Hydrochlorothiazide [HCTZ] 12.5 mg PO DAILY 12/03/14 Lisinopril [Zestril] 20 mg PO DAILY 12/03/14 Simvastatin 20 mg PO DAILY 12/03/14 Thiamine [Thiamine HCl] 100 mg PO DAILY 12/03/14 Review of Systems - Neurological Neurological: UNREMARKABLE - Psychiatric Psychiatric: Abnormal Sleep Pattern, Anxiety. absent: Hallucinations, Homicidal Ideation, Paranoia, Suicidal Ideation Mental Status Examination - Personal Presentation Personal Presentation: Looks stated age - Affect Affect: Constricted - Motor Activity Motor Activity: Calm - Reliability in Providing Information Reliability in Providing Information: Good - Speech Speech: Organized - Mood Mood: Anxious - Formal Thought Process Formal Thought Process: No Impairment - Cognitive Functions Orientation: Person, Place, Situation, Time Sensorium: Alert Attention/Concentration: Attentive Estimate of Intelligence: Average Judgement: Intact, as evidence by: Insight regarding need for hospitalization Memory: Recent intact, as evidence by: Ability to recall events of the day, Remote intact, as evidenced by: Abilit to recall sig. life events - Risk Risk: Withdrawal, Diminished functioning - Strength & Assets Inventory Strength & Assets Inventory: Cooperative - Limitations Limitations: Other DSM 5 DX - DSM 5 DSM 5 Diagnosis: Opioid withdrawal Alcohol wiithdrawal Alcohol use d/o - severe opioid use d/o - severe - Recommended/Plan of Treatment Treatment Recommendations and Plan of Treatment: Methadone detox Librium detox As needed medications Gabapentin for augmentation Attend groups and activities Supportive therapy and psychoeducation [place] for abstinence CBT for relapse prevention Encourage MAT Refer to rehab or IOP Attend self-help groups as well 34 min Projected ELOS: 5-6 days Prognosis: good - Smoking Cessation Smoking Cessation Initiated: Yes
--- NOTE | 2017-02-02 23:47 | CARD ---
APPROVED REPORT EKG Measurement Heart [id number] <Conclusion> Normal sinus rhythm Nonspecific T wave abnormality Prolonged QT Abnormal ECG
--- NOTE | 2017-02-03 00:23 | CON ---
DATE: NEPHROLOGY CONSULTATION HISTORY OF PRESENT ILLNESS: This is a 46-year-old male with past medical history of alcohol abuse, substance abuse, hypertension and hyperlipidemia, initially, admitted to detoxing medicine service and initially consulted for high blood pressure. The patient subsequently found to have acute renal failure. Nephrology, therefore consulted. The patient reports having had nausea and vomiting as well as diarrhea throughout the day yesterday; reports about 6 to 8 episodes of vomiting, which turned bilious and also had in vomitus at one point; diarrhea was very watery, also about 6 to 8 episodes throughout the day yesterday. The patient also noted that he has not eaten since being admitted to detox 2 days ago. The patient also reported having dysphagia and odynophagia that has improved. Soft tissue neck x-ray was done that was possibly suggestive of epiglottitis. The patient also with mild hypotension and subsequently transferred to medicine floor. PAST MEDICAL HISTORY: As above, the patient with extensive heroin, alcohol and tobacco use. FAMILY HISTORY: SOCIAL HISTORY: As above. REVIEW OF SYSTEMS: CONSTITUTIONAL: Reports chills yesterday. No subjective fever. HEENT: As per HPI. No change in vision. RESPIRATORY: Reporting cough. CARDIOVASCULAR: Denies chest pain or palpitations. GASTROINTESTINAL: As per HPI. GENITOURINARY: Reports not urinating all day today. Denies any dysuria. MUSCULOSKELETAL: Reports having sustained a fall about 2 weeks ago landing on his back and having back pain since then. Denies using any pain medications. PSYCHIATRIC: Extensive substance abuse. NEUROLOGIC: Denies any headache or dizziness. LABORATORY DATA: This afternoon, CBC: WBC of 13.22, hemoglobin of 19.3, hematocrit of 56.3, and platelets of 163. Chemistry panel: Sodium of 133, potassium of 3.6, chloride of 94, bicarbonate of 23, BUN of 25, creatinine of 2.4, calcium of 9.8, and albumin of 4.3. PHYSICAL EXAMINATION: VITALS: Early this afternoon, blood pressure of 93/65, heart rate of 102, respirations of 18, temperature of 98.4, and O2 saturation of 97% on room air. Repeat blood pressure later this afternoon is 109/76 and heart rate is 98. GENERAL: No distress, conversing, coherently in full sentences. HEENT: Moist mucous membrane. Nonicteric. No cervical lymphadenopathy. NECK: Enlarged neck circumference. RESPIRATORY: Lungs are clear to auscultation bilaterally. No rales. No rhonchi. No wheezes. CARDIOVASCULAR: Muffled heart sounds. No obvious murmurs or gallops. Regular rate. GASTROINTESTINAL: Abdomen soft, nontender, and nondistended. GENITOURINARY: No bladder distention. EXTREMITIES: No leg edema. SKIN: Warm. No cyanosis. MUSCULOSKELETAL: Left-sided hematoma/swelling noted over left mid back, tender to palpation. PSYCHIATRIC: Normal mood and normal affect. NEUROLOGIC: No numbness in feet. The patient is alert and oriented. ASSESSMENT AND PLAN: 1. Acute kidney injury, likely prerenal etiology in the setting of profound gastrointestinal losses, volume depletion evidenced by mild hypotension, also markedly hemoconcentrated on CBC; -Obtaining urine lytes, urine sodium, creatinine and chloride. -Agree with volume repletion normal saline at 100 mL per hour. 2. Metabolic acidosis as evidenced by mildly increased anion gap likely due to ketosis, but should check lactate level for possible evidence of sepsis; also superimposed metabolic alkalosis in the setting of vomiting; -Continue intravenous fluids as above. 3. Hypertension marked drop in blood pressure in the setting profound gastrointestinal losses, also contributing to acute kidney injury; the patient reports not being on any antihypertensive medications at home, started over here on lisinopril and amlodipine. Agree with holding blood pressure medications for now especially lisinopril, which causes loss of renal autoregulation and therefore amplifies prerenal acute kidney injury further. -Once the patient is volume replete, we recommend restarting slowly with amlodipine 5 mg daily. 4. SIRS/Sepsis - Started on zosyn 2.25 g q6h, may need to increase dose as renal function improves with IVF. Thank you for this consult. We will continue to follow closely. Darron Walker MD [email or web address]
[2017-02-03] MEDS: Sodium Chloride 0.9% 1,000 ML IV SCH ×4 (03:05→22:14)
[2017-02-03] MEDS: Piperacill/Tazo 2.25gm in Dex 2.25 GM/50 ML BAG IVPB SCH ×2 (03:06→10:32)
--- NOTE | 2017-02-03 04:41 | CON ---
DATE: 02/02/2017 HISTORY OF PRESENT ILLNESS: This is a gentleman who had a neck x-ray which showed possible epiglottitis. The patient does not complain of any shortness of breath at this point or throat pain. I tried to do a flexible laryngoscopy on the patient; however, he refused. Therefore, I am obtaining a CAT scan of his neck to see if he has epiglottitis, but now my suspicion for epiglottitis is very low since while supine he is breathing well. However, I will obtain a CAT of the neck without contrast to evaluate the size of the epiglottis. Bernardo Solorzano MD
--- NOTE | 2017-02-03 08:59 | RAD ---
Chest x-ray single frontal view History: Elevated white blood cell. Rales. Comparison: 02/02/2017 Findings: Biapical pleural thickening with upper lobe granulomatous changes. Mild venous congestion. Enlarged ectatic aorta. Top normal heart size. Degenerative changes in the spine and shoulders. Impression: Biapical pleural thickening with upper lobe granulomatous changes. Mild venous congestion. Enlarged ectatic aorta.
[2017-02-03 09:02] LABS: CREATININE, RANDOM URINE 145.3 mg/dL
[2017-02-03 09:04] LABS: RBC URINE 1 /hpf (0-3); URINE BILIRUBIN NEGATIVE (NEGATIVE); URINE BLOOD NEGATIVE (NEGATIVE); URINE COLOR Yellow (YELLOW); URINE GLUCOSE (UA) NORMAL (Normal); URINE KETONE NEGATIVE (NEGATIVE); URINE LEUKOCYTE ESTERASE NEG Leu/uL (Negative); URINE PROTEIN NEGATIVE (NEGATIVE); URINE UROBILINOGEN NORMAL mg/dL (0.2-1.0); WBC URINE 1 /hpf (0-5)
[2017-02-03] MEDS: Pantoprazole 40 mg EC Tab PO SCH (10:29)
[2017-02-03] MEDS: Multiple Vitamins Tab PO SCH (10:29)
[2017-02-03 11:54] LABS: RED CELL DISTRIBUTION WIDTH 13.9 % (11.5-14.5)
[2017-02-03 12:02] LABS: MEAN CELL VOLUME 90.2 fL (80.0-94.0); MEAN CORPUSCULAR HEMOGLOBIN 31.5 pg (27.0-31.0); MEAN CORPUSCULAR HGB CONC 34.9 g/dL (33.0-37.0); MEAN PLATELET VOLUME 9.7 fL (7.2-11.7); WHITE BLOOD COUNT 13.1 K/uL (4.8-10.8)
[2017-02-03 12:05] LABS: CHLORIDE 95 mmol/L (98-107); POTASSIUM 3.7 mmol/L (3.6-5.2); SODIUM 131 mmol/L (132-148)
[2017-02-03 12:07] LABS: ALB/GLOB RATIO 1.3 (1.0-2.1); ALKALINE PHOSPHATASE 61 U/L (38-126); AST/SGOT 54 U/L (17-59); BILIRUBIN,TOTAL 1.9 mg/dL (0.2-1.3); CARBON DIOXIDE 25 mmol/L (22-30); GFR AFRICAN-AMERICAN > 60
[2017-02-03 12:08] LABS: ALT/SGPT 52 U/L (21-72); BLOOD UREA NITROGEN 29 mg/dL (9-20); CALCIUM 8.6 mg/dl (8.6-10.4); GLUCOSE,RANDOM 93 mg/dL (75-110)
--- NOTE | 2017-02-03 13:39 | CP.PCM.PN ---
<CarlosmanjulaSimadavid - Last Filed: 02/03/17 18:59> Subjective - Date & Time of Evaluation Date of Evaluation: 02/03/17 Time of Evaluation: 07:15 - Subjective Subjective: Patient has been seen examined. No overnight events reported. He states that he no longer has throat pain and would like to be changed to regular diet. He states he feels well and would like to leave. Patient denies any fever, sob, chest pain, abdominal pain, n/v/d, constipation, or back pain. Objective - Vital Signs/Intake and Output Vital Signs (last 24 hours): Temp Pulse Resp BP Pulse Ox 98.4 F 84 20 98/64 L 98 02/02/17 23:25 02/02/17 23:25 02/02/17 23:25 02/02/17 23:25 02/02/17 23:25 Intake and Output: 02/03/17 02/03/17 06:59 18:59 Intake Total 920 Output Total 500 Balance 420 - Medications Medications: Current Medications Acetaminophen (Tylenol 325mg Tab) 650 mg PO Q6 PRN PRN Reason: Pain, moderate (4-7) Al Hydrox/Mg Hydrox/Simethicone (Maalox 30 Ml) 30 ml PO TID PRN PRN Reason: Indigestion / Heartburn Amlodipine Besylate (Norvasc) 5 mg PO DAILY [facility] Benzocaine/Menthol (Cepacol Sore Throat) 1 shayy MT Q2 PRN PRN Reason: Sore Throat Last Admin: 02/01/17 22:21 Dose: 1 shayy Chlordiazepoxide (Librium) 25 mg PO Q4H PRN PRN Reason: Alcohol Withdrawal Last Admin: 02/02/17 15:28 Dose: 25 mg Chlordiazepoxide (Librium) 25 mg PO BID [facility] PRN Reason: Taper Stop: 02/05/17 02:59 Last Admin: 02/03/17 10:29 Dose: 25 mg Dicyclomine HCl (Bentyl) 10 mg PO Q6H PRN PRN Reason: spasms Last Admin: 02/01/17 19:55 Dose: 10 mg Folic Acid (Folic Acid) 1 mg PO DAILY [facility] Last Admin: 02/03/17 10:29 Dose: 1 mg Piperacillin Sod/Tazobactam Sod (Zosyn 2.25 Gm Iv Premix) 2.25 gm in 50 mls @ 100 mls/hr IVPB Q8H [facility] Last Admin: 02/03/17 10:32 Dose: 100 mls/hr Sodium Chloride (Sodium Chloride 0.9%) 1,000 mls @ 150 mls/hr IV .Q6H40M [facility] Loperamide HCl (Imodium) 2 mg PO Q8 PRN PRN Reason: Diarrhea Methadone HCl (Methadone) 10 mg PO Q24H [facility] PRN Reason: Taper Stop: 02/06/17 09:59 Last Admin: 02/03/17 10:28 Dose: 10 mg Multivitamins (Hexavitamin) 1 tab PO DAILY [facility] Last Admin: 02/03/17 10:29 Dose: 1 tab Nicotine (Nicoderm Cq) 1 patch TD DAILY [facility] Last Admin: 02/02/17 10:31 Dose: 1 patch Ondansetron HCl (Zofran Tab) 4 mg PO Q8 PRN PRN Reason: Nausea/Vomiting Pantoprazole Sodium (Protonix Ec Tab) 40 mg PO DAILY [facility] Last Admin: 02/03/17 10:29 Dose: 40 mg Thiamine HCl (Vitamin B1 Tab) 100 mg PO DAILY [facility] Last Admin: 02/03/17 10:28 Dose: 100 mg Trazodone HCl (Desyrel) 100 mg PO HS PRN PRN Reason: Insomnia Last Admin: 02/02/17 22:22 Dose: 100 mg - Labs Labs: 02/03/17 11:44 02/03/17 11:44 - Constitutional Appears: Non-toxic - Head Exam Head Exam: ATRAUMATIC, NORMAL INSPECTION, NORMOCEPHALIC - Eye Exam Eye Exam: EOMI, Normal appearance - ENT Exam ENT Exam: Mucous Membranes Moist - Neck Exam Neck Exam: absent: Lymphadenopathy - Respiratory Exam Respiratory Exam: Clear to Ausculation Bilateral, NORMAL BREATHING PATTERN. absent: Stridor - Cardiovascular Exam Cardiovascular Exam: REGULAR RHYTHM, +S1, +S2. absent: Bradycardia, Tachycardia - GI/Abdominal Exam GI & Abdominal Exam: Soft, Normal Bowel Sounds. absent: Tenderness - Extremities Exam Extremities Exam: Normal Capillary Refill. absent: Pedal Edema - Neurological Exam Neurological Exam: Alert, Awake, Oriented x3 - Psychiatric Exam Psychiatric exam: Normal Affect, Normal Mood - Skin Skin Exam: Normal Color Assessment and Plan - Assessment and Plan (Free Text) Assessment: 46 year old male admitted to detox unit for Alcohol/Heroin abuse/intoxication/ withdrawal. Medicine team was consulted on this case for evaluation and treatment of uncontrolled HTN. Plan: Uncontrolled Hypertension (resolved) decreased Norvasc from 10mg-5mg Daily Held Lisinopril due to ADRIANA EKG read "NSR, non-specific t wave abnormality and prolong QT Sore Throat Rapid Strep (-) Soft Tissue Neck X-ray showed Possible Epiglottitis ENT consulted (Dr. Solorzano) throat culture pending results Cepacol Lozenges Started Zosyn Empirically (Day 2 today) Leukocytosis Likely Stress reaction Throat cultures negative Portable CXR read "Biapical pleural thickening with upper lobe granulomatous changes. Mild venous congestion, and enlarged ectatic aorta. Urine negative for Leuk Es and Nitrates WBC reduced from 13.2 to 13.1 Elevated HGB/HCT (Resolved) -15.7 today. -like hemoconcentrated due to dehydration -Cont. IV fluids Transaminitis (resolved) likely secondary to alcohol abuse Hepatitis panel negative Hyperlipidemia Lipid Panel: TG-161, Cholesterol - 313, LDL - 187, HDL - 125 Will continue to hold simvastatin as patient's LFTs are elevated Will restart statin tomorrow Alcohol withdrawal Management as per Psych team Heroin withdrawal Management as per Psych team Nicotine withdrawal Management as per Psych team Prophylaxis Activity as tolerated Protonix 40mg PO daily Patient seen and discussed with Attending Alexey Lakhani PGY1 Dispo: We will continue to follow. Will likely be discharged tomorrow after methadone dose. <Alfreda Harman V - Last Filed: 02/05/17 16:29> Objective - Vital Signs/Intake and Output Vital Signs (last 24 hours): Temp Pulse Resp BP Pulse Ox 98.3 F 85 20 145/94 H 98 02/04/17 08:04 02/04/17 09:15 02/04/17 08:04 02/04/17 09:15 02/04/17 09:15 - Labs Labs: 02/04/17 09:48 02/04/17 09:48 Attending/Attestation - Attestation I have personally seen and examined this patient.: Yes I have fully participated in the care of the patient.: Yes I have reviewed all pertinent clinical information, including history, physical exam and plan: Yes Notes (Text): This is late computer entry for 02/03/17. Patient seen, examined, and case discussed with day-time resident. Patient seen this morning on the regular floor with at bedside. Patient is more awake and alert, appears more hydrated, and reports he is feeling better. Patient is very eager to leave and had refused blood work this morning. Explained to the patient with his at bedside, we need the labs to watch in WBC in light of potential infection and his kidney numbers since it allows to see if kidney functions is improving or not. Upon explanation, patient reports he will allow blood work. Discussed with nurse, Erendira who will let try out person know on ther rounds at 10:30AM. Discussed with ENT, patient does not have epiglottis per CT scan, stable from his stand point. Patient's blood pressure improved, off anti-hypertensives, and on IV fluids. Per nephrology to continue IV fluids. Management per withdrawal per psych. Assessment/Plan 1) Uncontrolled Hypertension-->normalized * History of noncompliance on PO antihypertensives * d/c anti-hypertensive and clonidine prn given blood pressure normalized quickly over twenty hours 02/02 * Patient is on IV fluids-->appears dehydrated and fluid loss (diarrhea) secondary to withdrawal and inadequate PO intake 02/02 * Appears hydrated well * F/U EKG check for LVH in light of hypertension * Held thiazide diuretic given patient appears clinically dry on 02/01 2) Transaminitis * likely secondary to alcohol abuse * hepatitis panel: negative * Monitor trend-->improving * Note: patient is on librium taper for alcohol withdrawal * Alcohol elevated 399 on admission 3) Hyperlipidemia * Lipid panel appears abnormal; will repeat when patient clinically hydrated * Will continue to hold simvastatin as patient's LFTs are elevated; LFTs improving 4) Sore Throat; URI * ENT (Dr. Solorzano) on the case * Patient's soft tissue neck xray reported thicken epiglottis is suggested in lateral view only. CT is available for further characterization. * patient made NPO in light of soft tissue xray findings 02/02 * Patient received first dose of Decadron 10mg IV x1, Zosyn (renal dose) X1 on 02/02 * Likely rise in WBC secondary to Decadron * Patient transferred out from the detox unit and on the regular floors; started on IV abx and IV fluids on 02/02 * improved * Discussed with ENT, patient does not have Epiglottis * Rapid strep: negative * Repeat CT neck: negative for epiglottis/tonsillitis * Strep negative 5) Polycythemia * Possible hemoconcentration 02/02 * Patient appears clinically dehydrated and having diarrhea losses on 02/02 * Improving; appears well hydrated * hgb improved to normal values; likely leukocytosis secondary to Decadron * Will check again in AM tomorrow after patient has received IV fluid 6) Acute renal Failure * Nephrology (Dr. Darron Walker) on consult-->discussed case with and will evaluate patient on 02/02 * Hydration status improved * Renal function improved * Patient reports he is urinating 7) Alcohol withdrawal * Management as per Psych team (librium taper) 8) Heroin withdrawal * Management as per Psych team (methadone taper) 9) Nicotine withdrawal * Management as per Psych team 10) Prophylaxis * Activity as tolerated * Protonix 40mg PO daily
--- NOTE | 2017-02-03 14:19 | PCM.PYCHPN ---
Psychiatric Progress Note - Psychiatric Progress Note Patient seen today, length of contact: 18 min Patient Chief Complaint: ""I feel ready to go home" Problems Identified/Issues Discussed: The pt is seen, chart reviewed, case discussed with staff. The pt is compliant with medications and reports no side-effects. Symptoms are improving but needs more time to stabilize. After care discussed, support and psychoeducation given. back x-ray was negative says he slept okay Medication Change: Yes (10 mg methadone this morning) Medical Record Reviewed: Yes Mental Status Examination - Cognitive Function Orientation: Person, Place, Situation, Time Memory: Intact Attention: WNL Concentration: WNL Association: WNL Fund of Knowledge: WNL - Mood Mood: Anxious - Affect Affect: Broad - Speech Speech: Appropriate - Formal Thought Process Formal Thought Process: No Impairment - Suicidal Ideation Suicidal Ideation: No - Homicidal Ideation Homicidal Ideation: No Goal/Treatment Plan - Goal/Treatment Plan Need for Continued Stay: Remain at risks for inpatient hospitalization, Discharge may exacerbated symptoms, Severe functional impairment Progress Toward Problem(s) and Goals/Treatment Plan: Continue medications Support and psychoeducation daily After care planning by [facility] plans to leave tomorrow morning after his 5 mg dose Estimated Date of D/C: 02/04/17 - Smoking Cessation Smoking Cessation Initiated: No
--- NOTE | 2017-02-03 16:20 | CP.PCM.PN ---
Subjective - Date & Time of Evaluation Date of Evaluation: 02/03/17 Time of Evaluation: 16:00 - Subjective Subjective: Patient reports feeling well; urinating well; tolerating diet; Objective - Vital Signs/Intake and Output Vital Signs (last 24 hours): Temp Pulse Resp BP Pulse Ox 98.4 F 84 20 98/64 L 98 02/02/17 23:25 02/02/17 23:25 02/02/17 23:25 02/02/17 23:25 02/02/17 23:25 Intake and Output: 02/03/17 02/03/17 06:59 18:59 Intake Total 920 Output Total 500 Balance 420 - Medications Medications: Current Medications Acetaminophen (Tylenol 325mg Tab) 650 mg PO Q6 PRN PRN Reason: Pain, moderate (4-7) Al Hydrox/Mg Hydrox/Simethicone (Maalox 30 Ml) 30 ml PO TID PRN PRN Reason: Indigestion / Heartburn Amlodipine Besylate (Norvasc) 5 mg PO DAILY [facility] Benzocaine/Menthol (Cepacol Sore Throat) 1 shayy MT Q2 PRN PRN Reason: Sore Throat Last Admin: 02/01/17 22:21 Dose: 1 shayy Chlordiazepoxide (Librium) 25 mg PO Q4H PRN PRN Reason: Alcohol Withdrawal Last Admin: 02/02/17 15:28 Dose: 25 mg Chlordiazepoxide (Librium) 25 mg PO BID [facility] PRN Reason: Taper Stop: 02/05/17 02:59 Last Admin: 02/03/17 10:29 Dose: 25 mg Dicyclomine HCl (Bentyl) 10 mg PO Q6H PRN PRN Reason: spasms Last Admin: 02/01/17 19:55 Dose: 10 mg Folic Acid (Folic Acid) 1 mg PO DAILY [facility] Last Admin: 02/03/17 10:29 Dose: 1 mg Piperacillin Sod/Tazobactam Sod (Zosyn 2.25 Gm Iv Premix) 2.25 gm in 50 mls @ 100 mls/hr IVPB Q8H [facility] Last Admin: 02/03/17 10:32 Dose: 100 mls/hr Sodium Chloride (Sodium Chloride 0.9%) 1,000 mls @ 150 mls/hr IV .Q6H40M [facility] Last Admin: 02/03/17 14:09 Dose: Not Given Loperamide HCl (Imodium) 2 mg PO Q8 PRN PRN Reason: Diarrhea Methadone HCl (Methadone) 10 mg PO Q24H [facility] PRN Reason: Taper Stop: 02/06/17 09:59 Last Admin: 02/03/17 10:28 Dose: 10 mg Multivitamins (Hexavitamin) 1 tab PO DAILY [facility] Last Admin: 02/03/17 10:29 Dose: 1 tab Nicotine (Nicoderm Cq) 1 patch TD DAILY [facility] Last Admin: 02/03/17 14:25 Dose: 1 patch Ondansetron HCl (Zofran Tab) 4 mg PO Q8 PRN PRN Reason: Nausea/Vomiting Pantoprazole Sodium (Protonix Ec Tab) 40 mg PO DAILY [facility] Last Admin: 02/03/17 10:29 Dose: 40 mg Thiamine HCl (Vitamin B1 Tab) 100 mg PO DAILY [facility] Last Admin: 02/03/17 10:28 Dose: 100 mg Trazodone HCl (Desyrel) 100 mg PO HS PRN PRN Reason: Insomnia Last Admin: 02/02/17 22:22 Dose: 100 mg - Labs Labs: 02/03/17 11:44 02/03/17 11:44 - Constitutional Appears: Non-toxic, No Acute Distress - Head Exam Head Exam: NORMAL INSPECTION - Eye Exam Eye Exam: Normal appearance. absent: Scleral icterus - ENT Exam ENT Exam: Mucous Membranes Moist - Respiratory Exam Respiratory Exam: Clear to Ausculation Bilateral. absent: Respiratory Distress - Cardiovascular Exam Cardiovascular Exam: REGULAR RHYTHM, +S1, +S2 - GI/Abdominal Exam GI & Abdominal Exam: Soft. absent: Distended, Tenderness - Extremities Exam Additional comments: no leg edema; - Neurological Exam Neurological Exam: Alert, Awake - Psychiatric Exam Psychiatric exam: absent: Agitated - Skin Skin Exam: Warm. absent: Cyanosis Assessment and Plan (1) ADRIAAN (acute kidney injury) Assessment & Plan: Pre-renal etiology in the setting of profound GI losses and loss of renal auto- regulation while being on RADHA inhibitor; ADRIANA resolving with IVF; -continue NS at 150 cc/hr -avoid nephrotoxic agents and NSAIDS -continue to hold RADHA inhibitor/diuretic; Status: Acute (2) HTN (hypertension) Assessment & Plan: Low/normal BP; anti-htn meds currently on hold, can restart slowly with amlodpine 5 mg once patient appears euvolemic; Status: Acute (3) Metabolic alkalosis Assessment & Plan: Resolved with IVF; continue same; Status: Acute (4) SIRS (systemic inflammatory response syndrome) Assessment & Plan: Possibly due to throat infection; on zosyn, dose being increased to 3.375 q6h for close to normal renal function; Status: Acute
[2017-02-03] MEDS: Piperacill/Tazo 3.375gm in Dex 3.375 GM/50 ML BAG IVPB SCH ×2 (17:30→22:11)
[2017-02-04] MEDS: Sodium Chloride 0.9% 1,000 ML IV SCH ×2 (04:18→11:57)
[2017-02-04] MEDS: Piperacill/Tazo 3.375gm in Dex 3.375 GM/50 ML BAG IVPB SCH ×2 (04:34→09:31)
[2017-02-04 08:05] VITALS: BP 145/94; PULSE 85; TEMP 98.3; O2SAT 98
[2017-02-04] MEDS: Multiple Vitamins Tab PO SCH (09:07)
[2017-02-04] MEDS: Pantoprazole 40 mg EC Tab PO SCH (09:07)
[2017-02-04 09:59] LABS: CHLORIDE 102 mmol/L (98-107); SODIUM 135 mmol/L (132-148)
[2017-02-04 10:00] LABS: POTASSIUM 3.6 mmol/L (3.6-5.2)
[2017-02-04 10:02] LABS: ALB/GLOB RATIO 1.3 (1.0-2.1); ALKALINE PHOSPHATASE 52 U/L (38-126); ALT/SGPT 49 U/L (21-72); AST/SGOT 86 U/L (17-59); BILIRUBIN,TOTAL 2.1 mg/dL (0.2-1.3); BLOOD UREA NITROGEN 16 mg/dL (9-20); CARBON DIOXIDE 24 mmol/L (22-30); GFR AFRICAN-AMERICAN > 60; GLUCOSE,RANDOM 80 mg/dL (75-110); TOTAL PROTEIN 6.6 g/dL (6.3-8.3)
[2017-02-04 10:03] LABS: CALCIUM 8.5 mg/dl (8.6-10.4); MEAN CELL VOLUME 90.5 fL (80.0-94.0); MEAN CORPUSCULAR HEMOGLOBIN 31.9 pg (27.0-31.0); MEAN CORPUSCULAR HGB CONC 35.3 g/dL (33.0-37.0); MEAN PLATELET VOLUME 9.4 fL (7.2-11.7); RED CELL DISTRIBUTION WIDTH 13.7 % (11.5-14.5)
[2017-02-04] MEDS ORDERED: Influenza Vaccine 60 mcg/0.5 mL SYR (4YR UP) IM ONE (11:31)
[2017-02-04] MEDS ORDERED: Pneumococcal 23-Valent Vaccine SC ONE (11:31)
[2017-02-04 11:33] LABS: CHLORIDE URINE <15 mmol/L (32-290)
--- NOTE | 2017-02-04 13:26 | CP.PCM.DIS ---
<Alexey Lakhani - Last Filed: 02/04/17 13:24> Provider - Provider Date of Admission: 02/01/17 07:08 Attending physician: Alfreda Harman DO Hospital Course - Lab Results Lab Results: Micro Results 02/02/17 21:15 Blood Blood Culture - Preliminary NO GROWTH AFTER 24 HOURS 02/02/17 21:45 Blood Blood Culture - Preliminary NO GROWTH AFTER 24 HOURS 02/01/17 21:55 Throat Group A Strep Throat Culture - Final NO BETA STREP GROUP A ISOLATED. Most Recent Lab Values WBC 10.0 K/uL (4.8-10.8) 02/04/17 09:48 RBC 4.75 Mil/uL (4.40-5.90) 02/04/17 09:48 Hgb 15.2 g/dL (12.0-18.0) 02/04/17 09:48 Hct 43.0 % (35.0-51.0) 02/04/17 09:48 MCV 90.5 fL (80.0-94.0) 02/04/17 09:48 MCH 31.9 pg (27.0-31.0) H 02/04/17 09:48 MCHC 35.3 g/dL (33.0-37.0) 02/04/17 09:48 RDW 13.7 % (11.5-14.5) 02/04/17 09:48 Plt Count 113 K/uL (130-400) L 02/04/17 09:48 MPV 9.4 fL (7.2-11.7) 02/04/17 09:48 Neut % (Auto) 80.0 % (50.0-75.0) H 02/02/17 08:33 Lymph % (Auto) 8.8 % (20.0-40.0) L 02/02/17 08:33 Carver % (Auto) 10.2 % (0.0-10.0) H 02/02/17 08:33 Eos % (Auto) 0.3 % (0.0-4.0) 02/02/17 08:33 Baso % (Auto) 0.7 % (0.0-2.0) 02/02/17 08:33 Neut # 9.8 K/uL (1.8-7.0) H 02/02/17 08:33 Lymph # 1.1 K/uL (1.0-4.3) 02/02/17 08:33 Carver # 1.3 K/uL (0.0-0.8) H 02/02/17 08:33 Eos # 0.0 K/uL (0.0-0.7) 02/02/17 08:33 Baso # 0.1 K/uL (0.0-0.2) 02/02/17 08:33 Neutrophils % (Manual) 78 % (50-75) H 02/02/17 08:33 Band Neutrophils % 3 % (0-2) H 02/02/17 08:33 Lymphocytes % (Manual) 7 % (20-40) L 02/02/17 08:33 Reactive Lymphs % 2 % (0-0) H 02/02/17 08:33 Monocytes % (Manual) 10 % (0-10) 02/02/17 08:33 Differential Comment 02/04/17 09:48 Platelet Estimate Normal (NORMAL) 02/02/17 08:33 Poikilocytosis (manual Slight 02/02/17 08:33 Target Cells Slight 02/02/17 08:33 Sodium 135 mmol/L (132-148) 02/04/17 09:48 Potassium 3.6 mmol/L (3.6-5.2) 02/04/17 09:48 Chloride 102 mmol/L (98-107) 02/04/17 09:48 Carbon Dioxide 24 mmol/L (22-30) 02/04/17 09:48 Anion Gap 13 (10-20) 02/04/17 09:48 BUN 16 mg/dL (9-20) 02/04/17 09:48 Creatinine 1.0 mg/dL (0.8-1.5) 02/04/17 09:48 Est GFR ( Amer) > 60 02/04/17 09:48 Est GFR (Non-Af Amer) > 60 02/04/17 09:48 Random Glucose 80 mg/dL (75-110) 02/04/17 09:48 Lactic Acid 1.1 mmol/L (0.7-2.1) 02/02/17 21:18 Calcium 8.5 mg/dl (8.6-10.4) L 02/04/17 09:48 Total Bilirubin 2.1 mg/dL (0.2-1.3) H 02/04/17 09:48 AST 86 U/L (17-59) H D 02/04/17 09:48 ALT 49 U/L (21-72) 02/04/17 09:48 Alkaline Phosphatase 52 U/L (38-126) 02/04/17 09:48 Total Creatine Kinase 355 U/L (55-170) H 02/02/17 21:27 Total Protein 6.6 g/dL (6.3-8.3) 02/04/17 09:48 Albumin 3.8 g/dL (3.5-5.0) 02/04/17 09:48 Globulin 2.8 gm/dL (2.2-3.9) 02/04/17 09:48 Albumin/Globulin Ratio 1.3 (1.0-2.1) 02/04/17 09:48 Triglycerides 161 mg/dL (0-149) H 02/02/17 08:33 Cholesterol 313 mg/dL (0-199) H 02/02/17 08:33 LDL Cholesterol Direct 187 mg/dL (0-129) H 02/02/17 08:33 HDL Cholesterol 125 mg/dL (30-70) H 02/02/17 08:33 Urine Color Yellow (YELLOW) 02/03/17 07:29 Urine Clarity Clear (Clear) 02/03/17 07:29 Urine pH 5.0 (5.0-8.0) 02/03/17 07:29 Ur Specific [place] 1.015 (1.003-1.030) 02/03/17 07:29 Urine Protein Negative mg/dL (NEGATIVE) 02/03/17 07:29 Urine Glucose (UA) Normal mg/dL (Normal) 02/03/17 07:29 Urine Ketones Negative mg/dL (NEGATIVE) 02/03/17 07:29 Urine Blood Negative (NEGATIVE) 02/03/17 07:29 Urine Nitrate Negative (NEGATIVE) 02/03/17 07:29 Urine Bilirubin Negative (NEGATIVE) 02/03/17 07:29 Urine Urobilinogen Normal mg/dL (0.2-1.0) 02/03/17 07:29 Ur Leukocyte Esterase Neg Renaldo/uL (Negative) 02/03/17 07:29 Urine WBC (Auto) 1 /hpf (0-5) 02/03/17 07:29 Urine RBC (Auto) 1 /hpf (0-3) 02/03/17 07:29 Ur Random Creatinine 145.3 mg/dL 02/03/17 07:30 Ur Random Sodium 18 mmol/L 02/03/17 07:30 Urine Chloride <15 mmol/L (32-290) L 02/03/17 07:29 Urine Opiates Screen Positive (NEGATIVE) 01/31/17 22:35 Urine Methadone Screen Negative (NEGATIVE) 01/31/17 22:35 Ur Barbiturates Screen Negative (NEGATIVE) 01/31/17 22:35 Ur Phencyclidine Scrn Negative (NEGATIVE) 01/31/17 22:35 Ur Amphetamines Screen Negative (NEGATIVE) 01/31/17 22:35 U Benzodiazepines Scrn Negative (NEGATIVE) 01/31/17 22:35 U Oth Cocaine Metabols Negative (NEGATIVE) 01/31/17 22:35 U Cannabinoids Screen Negative (NEGATIVE) 01/31/17 22:35 Alcohol, Quantitative 399 mg/dl (0-10) H 01/31/17 20:10 Hepatitis A IgM Ab Negative (NEGATIVE) 02/02/17 08:33 Hep Bs Antigen Negative (NEGATIVE) 02/02/17 08:33 Hep B Core IgM Ab Negative (NEGATIVE) 02/02/17 08:33 Hepatitis C Antibody Negative (NEGATIVE) 02/02/17 08:33 Grp A Beta Strep Ag Negative (NEGATIVE) 02/01/17 21:55 Discharge Exam - Head Exam Head Exam: ATRAUMATIC, NORMAL INSPECTION, NORMOCEPHALIC - Eye Exam Eye Exam: EOMI, Normal appearance - ENT Exam ENT Exam: Mucous Membranes Moist - Respiratory Exam Respiratory Exam: Clear to PA & Lateral, NORMAL BREATHING PATTERN, UNREMARKABLE. absent: Accessory Muscle Use - Cardiovascular Exam Cardiovascular Exam: RRR, +S1, +S2 - GI/Abdominal Exam GI & Abdominal Exam: Normal Bowel Sounds. absent: Organomegaly - Extremities Exam Additional comments: no pedal edema - Neurological Exam Neurological exam: Alert, Oriented x3 - Psychiatric Exam Psychiatric exam: Normal Affect, Normal Mood - Skin Skin Exam: Normal Color, Warm Discharge Plan - Follow Up Plan Condition: STABLE Disposition: AGAINST MEDICAL ADVICE Instructions: How to Stop Smoking (DC), Cigarette Smoking and Your Health (GEN) , Benzodiazepine Abuse (DC), Cocaine Abuse (DC), Narcotic Abuse (DC), Barbiturate Abuse (DC), Regular Diet (DC), Abuse of Alcohol (DC) <Alfreda Harman V - Last Filed: 02/08/17 17:26> Provider - Provider Date of Admission: 02/01/17 07:08 Attending physician: Alfreda Harman DO Consults: Psychiatry ENT Nephrology Time Spent in preparation of Discharge (in minutes): 15 Diagnosis - Discharge Diagnosis (1) Left against medical advice Status: Acute Comment: Per psych, patient is competent to leave against medical advice; recommend to wait until last dose. Risks and benefits of leaving against medical advice discussed by resident to patient with at bedside; in spite instruction of risks; patient wants to go against medical advice (2) Acute opioid withdrawal Status: Acute (3) Transaminitis Status: Acute Comment: Improving. Likely secondary to alcohol (4) Acute renal failure Status: Acute (5) Epiglottitis Status: Ruled-out Comment: ENT consulted. Imaging completed. Patient received IV Abx and IV steroid to cover until ruled out. Subsequent CT scan does not show epiglottis. Epiglottis is ruled out. (6) Alcohol use disorder, severe, dependence Status: Acute Hospital Course - Lab Results Lab Results: Micro Results 02/02/17 21:15 Blood Blood Culture - Preliminary NO GROWTH AFTER 48 HOURS 02/02/17 21:45 Blood Blood Culture - Preliminary NO GROWTH AFTER 48 HOURS 02/01/17 21:55 Throat Group A Strep Throat Culture - Final NO BETA STREP GROUP A ISOLATED. Most Recent Lab Values WBC 10.0 K/uL (4.8-10.8) 02/04/17 09:48 RBC 4.75 Mil/uL (4.40-5.90) 02/04/17 09:48 Hgb 15.2 g/dL (12.0-18.0) 02/04/17 09:48 Hct 43.0 % (35.0-51.0) 02/04/17 09:48 MCV 90.5 fL (80.0-94.0) 02/04/17 09:48 MCH 31.9 pg (27.0-31.0) H 02/04/17 09:48 MCHC 35.3 g/dL (33.0-37.0) 02/04/17 09:48 RDW 13.7 % (11.5-14.5) 02/04/17 09:48 Plt Count 113 K/uL (130-400) L 02/04/17 09:48 MPV 9.4 fL (7.2-11.7) 02/04/17 09:48 Neut % (Auto) 80.0 % (50.0-75.0) H 02/02/17 08:33 Lymph % (Auto) 8.8 % (20.0-40.0) L 02/02/17 08:33 Carver % (Auto) 10.2 % (0.0-10.0) H 02/02/17 08:33 Eos % (Auto) 0.3 % (0.0-4.0) 02/02/17 08:33 Baso % (Auto) 0.7 % (0.0-2.0) 02/02/17 08:33 Neut # 9.8 K/uL (1.8-7.0) H 02/02/17 08:33 Lymph # 1.1 K/uL (1.0-4.3) 02/02/17 08:33 Carver # 1.3 K/uL (0.0-0.8) H 02/02/17 08:33 Eos # 0.0 K/uL (0.0-0.7) 02/02/17 08:33 Baso # 0.1 K/uL (0.0-0.2) 02/02/17 08:33 Neutrophils % (Manual) 78 % (50-75) H 02/02/17 08:33 Band Neutrophils % 3 % (0-2) H 02/02/17 08:33 Lymphocytes % (Manual) 7 % (20-40) L 02/02/17 08:33 Reactive Lymphs % 2 % (0-0) H 02/02/17 08:33 Monocytes % (Manual) 10 % (0-10) 02/02/17 08:33 Differential Comment 02/04/17 09:48 Platelet Estimate Normal (NORMAL) 02/02/17 08:33 Poikilocytosis (manual Slight 02/02/17 08:33 Target Cells Slight 02/02/17 08:33 Sodium 135 mmol/L (132-148) 02/04/17 09:48 Potassium 3.6 mmol/L (3.6-5.2) 02/04/17 09:48 Chloride 102 mmol/L (98-107) 02/04/17 09:48 Carbon Dioxide 24 mmol/L (22-30) 02/04/17 09:48 Anion Gap 13 (10-20) 02/04/17 09:48 BUN 16 mg/dL (9-20) 02/04/17 09:48 Creatinine 1.0 mg/dL (0.8-1.5) 02/04/17 09:48 Est GFR ( Amer) > 60 02/04/17 09:48 Est GFR (Non-Af Amer) > 60 02/04/17 09:48 Random Glucose 80 mg/dL (75-110) 02/04/17 09:48 Lactic Acid 1.1 mmol/L (0.7-2.1) 02/02/17 21:18 Calcium 8.5 mg/dl (8.6-10.4) L 02/04/17 09:48 Total Bilirubin 2.1 mg/dL (0.2-1.3) H 02/04/17 09:48 AST 86 U/L (17-59) H D 02/04/17 09:48 ALT 49 U/L (21-72) 02/04/17 09:48 Alkaline Phosphatase 52 U/L (38-126) 02/04/17 09:48 Total Creatine Kinase 355 U/L (55-170) H 02/02/17 21:27 Total Protein 6.6 g/dL (6.3-8.3) 02/04/17 09:48 Albumin 3.8 g/dL (3.5-5.0) 02/04/17 09:48 Globulin 2.8 gm/dL (2.2-3.9) 02/04/17 09:48 Albumin/Globulin Ratio 1.3 (1.0-2.1) 02/04/17 09:48 Triglycerides 161 mg/dL (0-149) H 02/02/17 08:33 Cholesterol 313 mg/dL (0-199) H 02/02/17 08:33 LDL Cholesterol Direct 187 mg/dL (0-129) H 02/02/17 08:33 HDL Cholesterol 125 mg/dL (30-70) H 02/02/17 08:33 Urine Color Yellow (YELLOW) 02/03/17 07:29 Urine Clarity Clear (Clear) 02/03/17 07:29 Urine pH 5.0 (5.0-8.0) 02/03/17 07:29 Ur Specific [place] 1.015 (1.003-1.030) 02/03/17 07:29 Urine Protein Negative mg/dL (NEGATIVE) 02/03/17 07:29 Urine Glucose (UA) Normal mg/dL (Normal) 02/03/17 07:29 Urine Ketones Negative mg/dL (NEGATIVE) 02/03/17 07:29 Urine Blood Negative (NEGATIVE) 02/03/17 07:29 Urine Nitrate Negative (NEGATIVE) 02/03/17 07:29 Urine Bilirubin Negative (NEGATIVE) 02/03/17 07:29 Urine Urobilinogen Normal mg/dL (0.2-1.0) 02/03/17 07:29 Ur Leukocyte Esterase Neg Renaldo/uL (Negative) 02/03/17 07:29 Urine WBC (Auto) 1 /hpf (0-5) 02/03/17 07:29 Urine RBC (Auto) 1 /hpf (0-3) 02/03/17 07:29 Ur Random Creatinine 145.3 mg/dL 02/03/17 07:30 Ur Random Sodium 18 mmol/L 02/03/17 07:30 Urine Chloride <15 mmol/L (32-290) L 02/03/17 07:29 Urine Opiates Screen Positive (NEGATIVE) 01/31/17 22:35 Urine Methadone Screen Negative (NEGATIVE) 01/31/17 22:35 Ur Barbiturates Screen Negative (NEGATIVE) 01/31/17 22:35 Ur Phencyclidine Scrn Negative (NEGATIVE) 01/31/17 22:35 Ur Amphetamines Screen Negative (NEGATIVE) 01/31/17 22:35 U Benzodiazepines Scrn Negative (NEGATIVE) 01/31/17 22:35 U Oth Cocaine Metabols Negative (NEGATIVE) 01/31/17 22:35 U Cannabinoids Screen Negative (NEGATIVE) 01/31/17 22:35 Alcohol, Quantitative 399 mg/dl (0-10) H 01/31/17 20:10 Hepatitis A IgM Ab Negative (NEGATIVE) 02/02/17 08:33 Hep Bs Antigen Negative (NEGATIVE) 02/02/17 08:33 Hep B Core IgM Ab Negative (NEGATIVE) 02/02/17 08:33 Hepatitis C Antibody Negative (NEGATIVE) 02/02/17 08:33 Grp A Beta Strep Ag Negative (NEGATIVE) 02/01/17 21:55 - Hospital Course Hospital Course: "CC: "my blood pressure is high" HPI: Patient is a 46 year old male with PMHx of alcohol abuse, heroin abuse, tobacco abuse, HTN and hyperlipidemia admitted to detox who has been experiencing high blood pressures. He says he does not take his BP at home. He does not take any antihypertensives at home although he says he is supposed to. Patient reports shakiness. Patient denies headache, blurry vision, chest pain, SOB, abdominal pain, diarrhea, nausea, vomiting, dysuria, hematuria. PMD: patient does not know name; he says [place] is on [address] in [place] PMHx: as above PSHx: denies Family Hx: grandmother had HI at 52, no CVA or CA in family Social History: smoked 1 pack of cigarettes per day for the past 13 years, drinks eight 24oz cans per day (last drink 6pm on 01/31), snorts 13 bags of heroin per day for 13 years (last snort 3pm on 01/31)" Consult: Psychiatry, Nephrology, and ENT Medicine on consult initially for uncontrolled blood pressure secondary to non- compliance on medications complicated by patient's withdrawal of illict substances. Patient also complained of sore throat and dysphagia. Patient completed soft tissue xray suggestive of epiglottis. ENT was consulted. Patient was transferred to the medical floor to receive IV fluids and IV antibiotics. Patient completed CT neck which ruled out epiglottiis. Patient's detox managed by psychiatry. Patient also have abnormalities in renal failure suspected due to dehydration and fluid losses secondary to diarrhea. Nephrology was consulted on the case. Patient left against medical advice on 02/04/17. Per psych, patient is competent to leave. Risks and benefits leaving against medical advice were discussed by the resident, and patient chose to leave prior to the results of blood work results. This is a summary of patient's hospitalization. Please see EMR for further details. Imaging available for review in the EMR. No medications prescribed upon discharge. - Date & Time of H&P Date of H&P: 02/01/17 Time of H&P: 17:05 Attending/Attestation - Attestation Notes (Text): This is late computer entry for 02/04/17. Patient seen, examined, and case discussed with day-time resident. Discussed with resident, patient is requesting to leave against medical advice; though likely to be discharged today pending blood work results. Resident had spoken with psych, Dr. Wong, patient is competent to leave against medical advice but recommended to stay to receive his last dose of Methadone. Patient left against medical advice. Blood work result not available at time of AMA though drawn prior to the patient. Risks of leaving prematurely from the hospital discussed by the resident. Patient refused flu and pneumonia vaccinations noted in nursing note. Assessment/Plan 1) Left against medical advice * per psych, patient is competent to leave against medical advice * Risk of leaving prematurely from the hospital, discussed by the resident, including risks such as , patient wants to leave inspite of risks. * Blood work result not available at time of AMA 2) Uncontrolled Hypertension-->improved * History of noncompliance on PO antihypertensives * d/c anti-hypertensive and clonidine prn given blood pressure normalized quickly over twenty hours 02/02 * Patient is on IV fluids-->appears dehydrated and fluid loss (diarrhea) secondary to withdrawal and inadequate PO intake 02/02 * Appears hydrated well * F/U EKG check for LVH in light of hypertension * Held thiazide diuretic given patient appears clinically dry on 02/01 3) Transaminitis * likely secondary to alcohol abuse * hepatitis panel: negative * Monitor trend-->improving * Note: patient is on librium taper for alcohol withdrawal * Alcohol elevated 399 on admission 4) Hyperlipidemia * Lipid panel appears abnormal; will repeat when patient clinically hydrated * Will continue to hold simvastatin as patient's LFTs are elevated; LFTs improving 5) Sore Throat; URI * ENT (Dr. Solorzano) on the case * Patient's soft tissue neck xray reported thicken epiglottis is suggested in lateral view only. CT is available for further characterization. * patient made NPO in light of soft tissue xray findings 02/02 * Patient received first dose of Decadron 10mg IV x1, Zosyn (renal dose) X1 on 02/02 * Likely rise in WBC secondary to Decadron * Patient transferred out from the detox unit and on the regular floors; started on IV abx and IV fluids on 02/02 * improved * Discussed with ENT, patient does not have Epiglottis * Rapid strep: negative * Repeat CT neck: negative for epiglottis/tonsillitis * Strep negative 6) Polycythemia * Possible hemoconcentration 02/02 * Patient appears clinically dehydrated and having diarrhea losses on 02/02 * Improving; appears well hydrated * hgb improved to normal values; likely leukocytosis secondary to Decadron * Will check again in AM tomorrow after patient has received IV fluid 7) Acute renal Failure * Nephrology (Dr. Darron Walker) on consult-->discussed case with and will evaluate patient on 02/02 * Hydration status improved * Renal function improved * Patient reports he is urinating 8) Alcohol withdrawal * Management as per Psych team (librium taper) 9) Heroin withdrawal * Management as per Psych team (methadone taper) 10) Nicotine withdrawal * Management as per Psych team 11) Prophylaxis * Activity as tolerated * Protonix 40mg PO daily
== END 2017-02-04 11:25 | disposition left against medical advice (07) | DRG 584 ==
LOC: C.ER 19:24 → C.7D 02-01 07:08 → C.3T 02-02 13:22
PROVIDERS: ADMIT Hospitalist; ATTEND Hospitalist
PROC: HZ2ZZZZ Detoxification Services for Substance Abuse Treatment (ICD-10-PCS; principal; 2017-02-01)
DX: A41.9 Sepsis, unspecified organism (principal); N17.9 Acute kidney failure, unspecified; E87.2 Acidosis; D75.1 Secondary polycythemia; J05.10 Acute epiglottitis without obstruction; R13.10 Dysphagia, unspecified; F11.23 Opioid dependence with withdrawal; F17.213 Nicotine dependence, cigarettes, with withdrawal; F10.230 Alcohol dependence with withdrawal, uncomplicated; E86.0 Dehydration; E78.5 Hyperlipidemia, unspecified; I10 Essential (primary) hypertension; Z91.19 Patient's noncompliance with other medical treatment and regimen; F10.220 Alcohol dependence with intoxication, uncomplicated; Y90.8 Blood alcohol level of 240 mg/100 ml or more; R74.0 Nonspecific elevation of levels of transaminase and lactic acid dehydrogenase [LDH]

== ENCOUNTER 2017-07-18 13:10 | Inpatient (IN) | payer MEDICAID ==
[2017-07-18 13:11] VITALS: BMI 27.8
[2017-07-18] MEDS ORDERED: Sodium Chloride 0.9% 1,000 ML IV ONE ×3 (15:41→23:12)
--- NOTE | 2017-07-18 16:13 | C.PDOC ---
History Of Present Illness 47 year old male presents to the ED for evaluation after having two seizures this morning, witnessed by his . Patient reports history of seizure disorder as well as alcohol withdrawal seizures. Patient's last alcohol intake was prior to ED arrival. He admits to being noncompliant with his hypertension medications and Dilantin. He denies tongue biting, bowel/bladder incontinence, chest pain, SOB, fever, abdominal pain. Time Seen by Provider: 07/18/17 15:24 Chief Complaint (Nursing): Seizure History Per: Patient History/Exam Limitations: no limitations Precipitating Factor(s): Missed Dose Of Anti-seizure Medication, Recent Alcohol Ingestion Additional History Per: Patient Past Medical History Reviewed: Historical Data, Nursing Documentation, Vital Signs Vital Signs: Last Vital Signs Temp 98.5 F 07/21/17 15:17 Pulse 98 H 07/21/17 16:00 Resp 20 07/21/17 15:17 BP 145/71 07/21/17 15:17 Pulse Ox 99 07/21/17 15:17 - Medical History PMH: Anxiety, Depression, HTN, Hypercholesterolemia, Hyperlipidemia, Seizures ( absence seizures) Surgical History: No Surg Hx - [facility] Procedures DETOXIFICATION SERVICES FOR SUBSTANCE ABUSE TREATMENT (02/01/17) INJECT/INFUSE ELECTROLYT (12/03/14) INJECT/INFUSE NEC (12/03/14) MEDS MGMT FOR SUBSTANCE ABUSE TREATMENT, OTH REPL MED (03/07/15) Family History: States: No Known Family Hx - Social History Hx Tobacco Use: Yes Hx Alcohol Use: Yes Hx Substance Use: Yes (Snorts Heroin.) - Immunization History Hx Tetanus Toxoid Vaccination: No Hx Influenza Vaccination: No Hx Pneumococcal Vaccination: No Review Of Systems Except As Marked, All Systems Reviewed And Found Negative. Cardiovascular: Negative for: Chest Pain Respiratory: Negative for: Shortness of Breath Gastrointestinal: Negative for: Nausea, Vomiting, Abdominal Pain, Diarrhea Genitourinary: Negative for: Incontinence Neurological: Positive for: Seizures Psych: Positive for: Other (alcohol dependence ) Physical Exam - Physical Exam Appears: Well, Non-toxic, No Acute Distress, Other (mildly intoxicated ) Skin: Normal Color, Warm, Dry Head: Atraumatic, Normacephalic Eye(s): bilateral: Normal Inspection, PERRL, EOMI Oral Mucosa: Moist Tongue: Normal Appearing, No Laceration Neck: No Midline Cervical Tenderness, No Paracervical Tenderness, No Step Off Deformity, Supple Chest: Symmetrical, No Deformity, No Tenderness Cardiovascular: Rhythm Regular Respiratory: Normal Breath Sounds, No Rales, No Rhonchi, No Wheezing Gastrointestinal/Abdominal: Normal Exam, Bowel Sounds, Soft, No Tenderness Extremity: Normal ROM Extremity: Bilateral: Atraumatic, Normal Color And Temperature, Normal ROM Neurological/Psych: No Other (awake, alert, oriented x 3 but mildly intoxicated ) ED Course And Treatment - Laboratory Results Result Diagrams: 07/21/17 07:15 07/21/17 07:15 ECG: Interpreted By Me, Viewed By Me (NSR 76 bpm, normal axis, QTc 506 ms, no acute ST/T wave changes) ECG Interpretation: Abnormal O2 Sat by Pulse Oximetry: 95 (on RA) Pulse Ox Interpretation: Normal Progress Note: Bloodwork, UA, UDS ordered and reviewed. Patient given IV NS bolus, PO Norvasc, PO librium, and IV morphine. Prior visits reviewed, no evidence of patient previously being on Dilantin. Seizures likely due to ETOH withdrawal, not undelrlying seizure disorder. - Physician Consult Information Physician Contacted: Genesis Martinez Outcome Of Conversation: Discussed patient with Dr. Martinez, agrees with admission for abdominal pain, pancreatitis, alcohol dependence, alcohol withdrawal seizures, elevated LFTs. Disposition - Disposition Disposition: HOSPITALIZED Disposition Time: 22:13 Condition: STABLE - Clinical Impression Clinical Impression: Alcohol dependence, Acute pancreatitis, Elevated LFTs, Alcohol withdrawal seizure - Scribe Statement The provider has reviewed the documentation as recorded by the Scribe (Tonya Martinez) Provider Attestation: All medical record entries made by the Scribe were at my direction and personally dictated by me. I have reviewed the chart and agree that the record accurately reflects my personal performance of the history, physical exam, medical decision making, and the department course for this patient. I have also personally directed, reviewed, and agree with the discharge instructions and disposition. Decision To Admit - Pt Status Changed To: Hospital Disposition Of: Inpatient - Admit Certification Admit to Inpatient:: After my assessment, the patient will require hospitalization for at least two midnights. This is because of the severity of symptoms shown, intensity of services needed, and/or the medical risk in this patient being treated as an outpatient. - InPatient: Physician Admission Certification: I certify that this patient requires 2 or more midnights of care for the following reason:: see notes - . Bed Request Type: Telemetry Admitting Physician: Genesis Martinez Patient Diagnosis: Alcohol dependence, Alcohol withdrawal seizure, Acute pancreatitis, Elevated LFTs
[2017-07-18 16:29] LABS: BASO # 0.1 K/uL (0.0-0.2); BASO % 0.9 % (0.0-2.0); EOS # 0.2 K/uL (0.0-0.7); EOS % 2.8 % (0.0-4.0); HEMOGLOBIN 16.8 g/dL (12.0-18.0); LYMPH # 1.5 K/uL (1.0-4.3); LYMPH % 21.2 % (20.0-40.0); MEAN CORPUSCULAR HEMOGLOBIN 31.3 pg (27.0-31.0); MEAN CORPUSCULAR HGB CONC 35.3 g/dL (33.0-37.0); MEAN PLATELET VOLUME 8.5 fL (7.2-11.7); MONO # 0.7 K/uL (0.0-0.8); MONO % 10.1 % (0.0-10.0); NEUT # 4.7 K/uL (1.8-7.0); NRBC % 0.1 % (0.0-2.0); RBC 5.36 Mil/uL (4.40-5.90); RED CELL DISTRIBUTION WIDTH 14.1 % (11.5-14.5); WHITE BLOOD COUNT 7.2 K/uL (4.8-10.8)
[2017-07-18 16:36] LABS: MEAN CELL VOLUME 88.5 fL (80.0-94.0)
[2017-07-18 16:43] LABS: ALB/GLOB RATIO 0.9 (1.0-2.1); ALBUMIN 4.2 g/dL (3.5-5.0); ALT/SGPT 148 U/L (21-72); AST/SGOT 208 U/L (17-59); BLOOD UREA NITROGEN 7 mg/dL (9-20); CALCIUM 8.7 mg/dl (8.6-10.4); GFR AFRICAN-AMERICAN > 60; GFR NON-AFRICAN AMERICAN > 60; LIPASE 851 U/L (23-300)
[2017-07-18 19:24] LABS: SQUAMOUS EPITHIAL < 1 /hpf (0-5); URINE BACTERIA OCC (<OCC); URINE BILIRUBIN NEGATIVE (NEGATIVE); URINE CLARITY Clear (Clear); URINE COLOR Yellow (YELLOW); URINE GLUCOSE (UA) NORMAL (Normal); URINE HYALINE CAST 0-2 /lpf (0-2); URINE LEUKOCYTE ESTERASE NEG Leu/uL (Negative); URINE PROTEIN 2+ mg/dL (NEGATIVE)
[2017-07-18 19:25] LABS: URINE BLOOD TRACE (NEGATIVE)
[2017-07-18] MEDS ORDERED: Sodium Chloride 0.9% 1,000 ML ONE (19:25)
[2017-07-18 19:36] LABS: BARBITURATES, UR NEGATIVE (NEGATIVE); BENZODIAZEPINES, UR NEGATIVE (NEGATIVE); PHENCYCLIDINE, UR NEGATIVE (NEGATIVE)
[2017-07-18 19:38] LABS: OPIATES, UR POSITIVE (NEGATIVE)
[2017-07-18] MEDS ORDERED: Morphine 4 MG/ML VIAL ONE (23:18)
[2017-07-18] MEDS ORDERED: Dextrose 5%/0.45% NS 1,000 ML IV SCH (23:45)
--- NOTE | 2017-07-19 07:35 | CP.PCM.CON ---
<Kael Rene - Last Filed: 07/19/17 09:03> History of Present Illness - History of Present Illness History of Present Illness: PGY5 GI Fellow Consult Note Patient is a 47yo male with PMHx significant for EtOH abuse/dependece, heroin abuse, EtOH withdrawal seizures, HTN, dyslipidemia who presented to the hospital brought in by his for two witnessed seizures. He had two witnessed seizures at home and was brought in to the hospital for further evaluation. Currently, he admits to diffuse abdominal pain with worst pain in the epigastric area. Denies radiation of pain to back. No change in bowel habits , nausea, vomiting, weight loss, fever, chills. Admits nonadherence to antiepileptic medications and has been using heroin, EtOH and methadone purchased on the street up until admission. PMHx: See HPI PSHx: Discussed with patient and denies any surgical history FHx: CAD Social: Daily EtOH use (8 24oz daily), 1ppd smoker, daily heroin INH use, purchased methadone on street Endo: No prior endoscopic evaluation 12 system ROS performed and negative except where stated Past Patient History - Infectious Disease Hx of Infectious Diseases: None - Past Medical History & Family History Past Medical History?: Yes - Past Social History Smoking Status: Heavy Smoker > 10 Cigarettes Daily - CARDIAC Hx Cardiac Disorders: Yes Hx Hypercholesterolemia: Yes Hx Hypertension: Yes - PULMONARY Hx Respiratory Disorders: No - NEUROLOGICAL Hx Neurological Disorder: Yes Hx Seizures: Yes (absence seizures) - HEENT Hx HEENT Problems: No - RENAL Hx Chronic Kidney Disease: No - ENDOCRINE/METABOLIC Hx Endocrine Disorders: No - HEMATOLOGICAL/ONCOLOGICAL Hx Blood Disorders: No - INTEGUMENTARY Hx Dermatological Problems: No - MUSCULOSKELETAL/RHEUMATOLOGICAL Hx Musculoskeletal Disorders: Yes Hx Falls: Yes - GASTROINTESTINAL Hx Gastrointestinal Disorders: No - GENITOURINARY/GYNECOLOGICAL Hx Genitourinary Disorders: No - PSYCHIATRIC Hx Psychophysiologic Disorder: Yes Hx Anxiety: Yes Hx Depression: Yes Hx Substance Use: Yes (Snorts Heroin.) - SURGICAL HISTORY Hx Surgeries: No Other/Comment: no further information provided by patients - ANESTHESIA Hx Anesthesia: No Hx Anesthesia Reactions: No Hx Malignant Hyperthermia: No Has any member of the family had a problem w/ anesthesia?: No Meds Allergies/Adverse Reactions: Allergies Allergy/AdvReac Type Severity Reaction Status Date / Time No Known Allergies Allergy Verified 01/31/17 19:47 - Medications Medications: Current Medications Chlordiazepoxide (Librium) 25 mg PO Q6 [facility] PRN Reason: Taper Stop: 07/22/17 23:59 Last Admin: 07/19/17 05:31 Dose: 25 mg Enoxaparin Sodium (Lovenox) 40 mg SC DAILY [facility] Sodium Chloride (Sodium Chloride 0.9%) 1,000 mls @ 100 mls/hr IV .Q10H ONE Stop: 07/19/17 09:11 Last Admin: 07/18/17 23:29 Dose: 100 mls/hr Dextrose/Sodium Chloride (Dextrose 5%/0.45% Ns 1000 Ml) 1,000 mls @ 100 mls/hr IV .Q10H [facility] Last Admin: 07/19/17 01:00 Dose: 100 mls/hr Pantoprazole Sodium (Protonix Inj) 40 mg IVP DAILY [facility] Physical Exam - Constitutional Appears: Chronically Ill Additional comments: active EtOH withdrawal - Eye Exam Eye Exam: EOMI, PERRL - ENT Exam ENT Exam: Mucous Membranes Dry - Respiratory Exam Respiratory Exam: Clear to Auscultation Bilateral. absent: Rales, Rhonchi, Wheezes - Cardiovascular Exam Cardiovascular Exam: RRR, +S1, +S2 - GI/Abdominal Exam GI & Abdominal Exam: Normal Bowel Sounds, Soft, Tenderness (diffusely, worst in epigastric area). absent: Distended, Firm, Guarding, Organomegaly, Rigid - Extremities Exam Extremities exam: Positive for: normal inspection. Negative for: pedal edema - Neurological Exam Neurological exam: Alert, Oriented x3 - Psychiatric Exam Psychiatric exam: Normal Affect, Normal Mood - Skin Skin Exam: Dry, Warm Results - Vital Signs Recent Vital Signs: Last Vital Signs Temp 98.2 F 07/19/17 00:20 Pulse 84 07/19/17 03:00 Resp 20 07/19/17 00:20 BP 158/87 H 07/19/17 03:00 Pulse Ox 93 L 07/19/17 00:20 - Labs Result Diagrams: 07/19/17 07:38 07/19/17 07:38 Labs: Laboratory Results - last 24 hr 07/18/17 07/18/17 07/18/17 16:25 16:25 16:25 WBC 7.2 RBC 5.36 Hgb 16.8 Hct 47.4 MCV 88.5 D MCH 31.3 H MCHC 35.3 RDW 14.1 Plt Count 148 MPV 8.5 Neut % (Auto) 65.0 Lymph % (Auto) 21.2 [place] % (Auto) 10.1 H Eos % (Auto) 2.8 Baso % (Auto) 0.9 Neut # (Auto) 4.7 Lymph # (Auto) 1.5 [place] # (Auto) 0.7 Eos # (Auto) 0.2 Baso # (Auto) 0.1 Sodium 143 Potassium 3.9 Chloride 99 Carbon Dioxide 27 Anion Gap 22 H BUN 7 L Creatinine 0.8 Est GFR ( Amer) > 60 Est GFR (Non-Af Amer) > 60 POC Glucose (mg/dL) Random Glucose 103 Calcium 8.7 Total Bilirubin 1.5 H AST 208 H D ALT 148 H D Alkaline Phosphatase 82 Total Creatine Kinase 527 H Total Protein 9.2 H Albumin 4.2 Globulin 5.0 H Albumin/Globulin Ratio 0.9 L Lipase 851 H Urine Color Urine Clarity Urine pH Ur Specific Frost Urine Protein Urine Glucose (UA) Urine Ketones Urine Blood Urine Nitrate Urine Bilirubin Urine Urobilinogen Ur Leukocyte Esterase Urine WBC (Auto) Urine RBC (Auto) Ur Squamous Epith Cells Urine Bacteria Hyaline Casts Urine Opiates Screen Urine Methadone Screen Ur Barbiturates Screen Phenytoin < 3.0 L Ur Phencyclidine Scrn Ur Amphetamines Screen U Benzodiazepines Scrn U Oth Cocaine Metabols U Cannabinoids Screen Alcohol, Quantitative 316 H 07/18/17 07/18/17 07/18/17 16:30 19:17 19:17 WBC RBC Hgb Hct MCV MCH MCHC RDW Plt Count MPV Neut % (Auto) Lymph % (Auto) Austin % (Auto) Eos % (Auto) Baso % (Auto) Neut # (Auto) Lymph # (Auto) Austin # (Auto) Eos # (Auto) Baso # (Auto) Sodium Potassium Chloride Carbon Dioxide Anion Gap BUN Creatinine Est GFR ( Amer) Est GFR (Non-Af Amer) POC Glucose (mg/dL) 97 Random Glucose Calcium Total Bilirubin AST ALT Alkaline Phosphatase Total Creatine Kinase Total Protein Albumin Globulin Albumin/Globulin Ratio Lipase Urine Color Yellow Urine Clarity Clear Urine pH 5.0 Ur Specific Frost 1.013 Urine Protein 2+ H Urine Glucose (UA) Normal Urine Ketones Negative Urine Blood Trace H Urine Nitrate Negative Urine Bilirubin Negative Urine Urobilinogen 2.0 Ur Leukocyte Esterase Neg Urine WBC (Auto) 1 Urine RBC (Auto) < 1 Ur Squamous Epith Cells < 1 Urine Bacteria Occ H Hyaline Casts 0-2 Urine Opiates Screen Positive H Urine Methadone Screen Positive H Ur Barbiturates Screen Negative Phenytoin Ur Phencyclidine Scrn Negative Ur Amphetamines Screen Negative U Benzodiazepines Scrn Negative U Oth Cocaine Metabols Negative U Cannabinoids Screen Negative Alcohol, Quantitative Assessment & Plan - Assessment and Plan (Free Text) Assessment: lizzette is a 47yo male with PMHx significant for EtOH abuse/dependece, heroin abuse, EtOH withdrawal seizures, HTN, dyslipidemia who presented to the hospital brought in by his for two witnessed seizures -Seizure activity - possibly 2/2 EtOH withdrawal -Acute pancreatitis -EtOH intoxication -Suspect alcoholic hepatitis -EtOH abuse/dependence -Opiate abuse/dependence Plan: -Recommend increasing IVF to LF@200cc/hr -Check U/S abdomen, eval liver parenchyma -Awaiting INR, will need to calculate MDF, if >32 consider initiation of steroids -Check hepatitis panel, autoimmune markers (HARMEET, AMA, ASMA, IgG) -Clear liquid diet, advance as tolerated -Antiepileptics/withdrawal protocol per primary team -Strongly encourage EtOH/opiate cessation -Consider psychiatric consultation - Date & Time Date: 07/19/17 Time: 06:50 <Lazaro Tolliver - Last Filed: 07/19/17 09:36> Meds - Medications Medications: Current Medications Chlordiazepoxide (Librium) 25 mg PO Q6 [facility] PRN Reason: Taper Stop: 07/22/17 23:59 Last Admin: 07/19/17 05:31 Dose: 25 mg Enoxaparin Sodium (Lovenox) 40 mg SC DAILY [facility] Lactated Ringer's (Lactated Ringer's) 1,000 mls @ 200 mls/hr IV .Q5H [facility] Pantoprazole Sodium (Protonix Inj) 40 mg IVP DAILY [facility] Results - Vital Signs Recent Vital Signs: Last Vital Signs Temp 98.6 F 07/19/17 07:59 Pulse 82 07/19/17 07:59 Resp 20 07/19/17 07:59 BP 164/110 H 07/19/17 07:59 Pulse Ox 96 07/19/17 07:59 - Labs Result Diagrams: 07/19/17 07:38 07/19/17 07:38 Labs: Laboratory Results - last 24 hr 07/18/17 07/18/17 07/18/17 16:25 16:25 16:25 WBC 7.2 RBC 5.36 Hgb 16.8 Hct 47.4 MCV 88.5 D MCH 31.3 H MCHC 35.3 RDW 14.1 Plt Count 148 MPV 8.5 Neut % (Auto) 65.0 Lymph % (Auto) 21.2 [place] % (Auto) 10.1 H Eos % (Auto) 2.8 Baso % (Auto) 0.9 Neut # (Auto) 4.7 Lymph # (Auto) 1.5 [place] # (Auto) 0.7 Eos # (Auto) 0.2 Baso # (Auto) 0.1 Sodium 143 Potassium 3.9 Chloride 99 Carbon Dioxide 27 Anion Gap 22 H BUN 7 L Creatinine 0.8 Est GFR ( Amer) > 60 Est GFR (Non-Af Amer) > 60 POC Glucose (mg/dL) Random Glucose 103 Calcium 8.7 Total Bilirubin 1.5 H Direct Bilirubin AST 208 H D ALT 148 H D Alkaline Phosphatase 82 Total Creatine Kinase 527 H Total Protein 9.2 H Albumin 4.2 Globulin 5.0 H Albumin/Globulin Ratio 0.9 L Amylase Lipase 851 H Urine Color Urine Clarity Urine pH Ur Specific Frost Urine Protein Urine Glucose (UA) Urine Ketones Urine Blood Urine Nitrate Urine Bilirubin Urine Urobilinogen Ur Leukocyte Esterase Urine WBC (Auto) Urine RBC (Auto) Ur Squamous Epith Cells Urine Bacteria Hyaline Casts Urine Opiates Screen Urine Methadone Screen Ur Barbiturates Screen Phenytoin < 3.0 L Ur Phencyclidine Scrn Ur Amphetamines Screen U Benzodiazepines Scrn U Oth Cocaine Metabols U Cannabinoids Screen Alcohol, Quantitative 316 H Hepatitis A IgM Ab Hep Bs Antigen Hep B Core IgM Ab Hepatitis C Antibody 07/18/17 07/18/17 07/18/17 16:30 19:17 19:17 WBC RBC Hgb Hct MCV MCH MCHC RDW Plt Count MPV Neut % (Auto) Lymph % (Auto) [place] % (Auto) Eos % (Auto) Baso % (Auto) Neut # (Auto) Lymph # (Auto) [place] # (Auto) Eos # (Auto) Baso # (Auto) Sodium Potassium Chloride Carbon Dioxide Anion Gap BUN Creatinine Est GFR ( Amer) Est GFR (Non-Af Amer) POC Glucose (mg/dL) 97 Random Glucose Calcium Total Bilirubin Direct Bilirubin AST ALT Alkaline Phosphatase Total Creatine Kinase Total Protein Albumin Globulin Albumin/Globulin Ratio Amylase Lipase Urine Color Yellow Urine Clarity Clear Urine pH 5.0 Ur Specific Frost 1.013 Urine Protein 2+ H Urine Glucose (UA) Normal Urine Ketones Negative Urine Blood Trace H Urine Nitrate Negative Urine Bilirubin Negative Urine Urobilinogen 2.0 Ur Leukocyte Esterase Neg Urine WBC (Auto) 1 Urine RBC (Auto) < 1 Ur Squamous Epith Cells < 1 Urine Bacteria Occ H Hyaline Casts 0-2 Urine Opiates Screen Positive H Urine Methadone Screen Positive H Ur Barbiturates Screen Negative Phenytoin Ur Phencyclidine Scrn Negative Ur Amphetamines Screen Negative U Benzodiazepines Scrn Negative U Oth Cocaine Metabols Negative U Cannabinoids Screen Negative Alcohol, Quantitative Hepatitis A IgM Ab Hep Bs Antigen Hep B Core IgM Ab Hepatitis C Antibody 07/19/17 07/19/17 07/19/17 07:38 07:38 07:52 WBC 5.9 RBC 5.04 Hgb 16.1 Hct 45.4 MCV 90.0 MCH 32.0 H MCHC 35.5 RDW 14.0 Plt Count 130 MPV 9.2 Neut % (Auto) 63.9 Lymph % (Auto) 21.9 [place] % (Auto) 10.7 H Eos % (Auto) 2.5 Baso % (Auto) 1.0 Neut # (Auto) 3.8 Lymph # (Auto) 1.3 [place] # (Auto) 0.6 Eos # (Auto) 0.1 Baso # (Auto) 0.1 Sodium 139 Potassium 3.4 L Chloride 99 Carbon Dioxide 27 Anion Gap 16 BUN 6 L Creatinine 0.7 L Est GFR ( Amer) > 60 Est GFR (Non-Af Amer) > 60 POC Glucose (mg/dL) Random Glucose 91 Calcium 8.1 L Total Bilirubin 2.4 H Direct Bilirubin 0.7 H AST 163 H D ALT 116 H D Alkaline Phosphatase 67 Total Creatine Kinase Total Protein 8.0 Albumin 3.8 Globulin 4.2 H Albumin/Globulin Ratio 0.9 L Amylase 196 H Lipase 432 H Urine Color Urine Clarity Urine pH Ur Specific Frost Urine Protein Urine Glucose (UA) Urine Ketones Urine Blood Urine Nitrate Urine Bilirubin Urine Urobilinogen Ur Leukocyte Esterase Urine WBC (Auto) Urine RBC (Auto) Ur Squamous Epith Cells Urine Bacteria Hyaline Casts Urine Opiates Screen Urine Methadone Screen Ur Barbiturates Screen Phenytoin Ur Phencyclidine Scrn Ur Amphetamines Screen U Benzodiazepines Scrn U Oth Cocaine Metabols U Cannabinoids Screen Alcohol, Quantitative Hepatitis A IgM Ab Negative Hep Bs Antigen Negative Hep B Core IgM Ab Negative Hepatitis C Antibody Negative Attending/Attestation - Attestation I have personally seen and examined this patient.: Yes I have fully participated in the care of the patient.: Yes I have reviewed all pertinent clinical information: Yes Notes (Text): 07/19/17 09:29 I have seen and examined patient with GI fellow. Agree with above documentation with the following additions. In brief, this is a 47 year old male with history of polysubstance abuse, HTN, hyperlipidemia, ETOH withdrawal seizures who was brought to hospital by spouse following witnessed seizure episode. GI called for evaluation of pancreatitis. Patient reports recent non- compliance with epilepsy medication and increased recent ETOH abuse. He describes an epigastric pain, 6/10 intensity, radiating to back which is worse after meal consumption. He denies nausea, vomiting, diarrhea, fever/chills, weight loss, rectal bleeding, or change in bowel habits. No prior endoscopic evaluation. Review of vitals from today shows elevated BP. Polysubstance abuse (heroin, ETOH) HTN Hyperlipidemia Seizure Abdominal pain, acute pancreatitis, ETOH hepatitis - Clear liquid diet as tolerated - Continue with IVF hydration therapy, pain control - Continue to monitor LFTs, obtain viral hepatitis and autoimmune panel testing - Obtain INR for DF calculation - Obtain abdominal US to evaluate for gallstones and CT imaging for additional pancreatic evaluation - Obtain lipid profile - ETOH cessation counseling - Will continue to monitor patient clinical course
[2017-07-19 07:52] LABS: BASO # 0.1 K/uL (0.0-0.2)
[2017-07-19 08:00] LABS: ALB/GLOB RATIO 0.9 (1.0-2.1); ALBUMIN 3.8 g/dL (3.5-5.0); ALT/SGPT 116 U/L (21-72); AMYLASE 196 U/L (30-110); AST/SGOT 163 U/L (17-59); BLOOD UREA NITROGEN 6 mg/dL (9-20); CALCIUM 8.1 mg/dl (8.6-10.4); GFR AFRICAN-AMERICAN > 60; GFR NON-AFRICAN AMERICAN > 60; LIPASE 432 U/L (23-300)
[2017-07-19 08:13] LABS: EOS # 0.1 K/uL (0.0-0.7); EOS % 2.5 % (0.0-4.0); HEMOGLOBIN 16.1 g/dL (12.0-18.0); LYMPH # 1.3 K/uL (1.0-4.3); LYMPH % 21.9 % (20.0-40.0); MEAN CORPUSCULAR HGB CONC 35.5 g/dL (33.0-37.0); MEAN PLATELET VOLUME 9.2 fL (7.2-11.7); MONO # 0.6 K/uL (0.0-0.8); MONO % 10.7 % (0.0-10.0); NEUT # 3.8 K/uL (1.8-7.0); NEUT % 63.9 % (50.0-75.0); NRBC % 0.4 % (0.0-2.0); RBC 5.04 Mil/uL (4.40-5.90); WHITE BLOOD COUNT 5.9 K/uL (4.8-10.8)
[2017-07-19 08:16] LABS: BILIRUBIN,DIRECT 0.7 mg/dL (0.0-0.4)
[2017-07-19 08:41] LABS: HEPATITIS B SURFACE AG Negative (NEGATIVE)
[2017-07-19 08:46] LABS: HEPATITIS A IGM NEGATIVE (NEGATIVE); HEPATITIS B CORE AB NEGATIVE (NEGATIVE)
[2017-07-19 08:58] LABS: HEPATITIS C ANTIBODY NEGATIVE (NEGATIVE)
[2017-07-19 11:00] LABS: INR 1.1; PROTHROMBIN TIME 12.2 SECONDS (9.7-12.2)
[2017-07-19] MEDS: Enoxaparin 40 mg Syringe SC SCH (11:11)
[2017-07-19 11:24] LABS: HDL CHOLESTEROL 142 mg/dL (30-70)
[2017-07-19] MEDS ORDERED: Iohexol 240 (50 ml) PO ONE (11:30)
[2017-07-19] MEDS: Lactated Ringer's 1,000 ML IV SCH ×4 (11:38→23:41)
[2017-07-19 12:10] LABS: LDL CHOLESTEROL 183 mg/dL (0-129)
[2017-07-19] MEDS ORDERED: Iodixanol 320 MG/ML 100 ML BOTTLE IV ONE (14:35)
--- NOTE | 2017-07-19 15:31 | CT ---
PROCEDURE: CT Abdomen and Pelvis with contrast HISTORY: pancreatitis COMPARISON: None. TECHNIQUE: Contrast dose: 100 mL Visipaque 320 Radiation dose: Total exam DLP = 436.05 mGy-cm. This CT exam was performed using one or more of the following dose reduction techniques: Automated exposure control, adjustment of the mA and/or kV according to patient size, and/or use of iterative reconstruction technique. FINDINGS: LOWER THORAX: Unremarkable. LIVER: Mild hepatomegaly. Smooth contour. No mass. No biliary ductal dilatation. GALLBLADDER AND BILE DUCTS: Cholelithiasis. No evidence cholecystitis. PANCREAS: No mass. No ductal dilatation. No peripancreatic fluid. No evidence of acute pancreatitis. SPLEEN: Unremarkable. ADRENALS: Unremarkable. No mass. KIDNEYS AND URETERS: 8 mm left upper pole renal cortical cyst. 16 mm left lower pole renal cortical cyst. This measures 21 Hounsfield units and may contain some debris. Consider correlation with ultrasound examination. VASCULATURE: Unremarkable. No aortic aneurysm. BOWEL: Mild nonspecific enteritis involving loops of proximal jejunum, with circumferential mural thickening. No other abnormal bowel loops. No bowel obstruction. APPENDIX: Normal appendix. PERITONEUM: Unremarkable. No free fluid. No free air. LYMPH NODES: Unremarkable. No enlarged lymph nodes. BLADDER: Unremarkable. REPRODUCTIVE: Normal prostate BONES: No acute fracture. OTHER FINDINGS: None. IMPRESSION: No evidence of acute pancreatitis. Mild hepatomegaly. Cholelithiasis without evidence of cholecystitis. 16 mm low-density left lower pole renal mass, likely cyst. Consider correlation with ultrasound examination. Mild nonspecific enteritis involving loops of proximal jejunum.
[2017-07-19] MEDS ORDERED: Enalaprilat 2.5 MG/2 ML IV ONE (15:41)
--- NOTE | 2017-07-19 15:53 | CP.PCM.PN ---
Subjective - Date & Time of Evaluation Date of Evaluation: 07/19/17 Time of Evaluation: 08:00 - Subjective Subjective: PGY2 medicine progress note for Dr. uEsebio Martinez: Patient was seen and examined at bedside this morning. Patient presented yesterday after having two seizures. He admits to diffuse abdominal pain with worst pain in the epigastric area. He denied chest pain or SOB but states that he is sweating and feels anxious. Patient is a heavy alcohol user and states that he gets seizures daily if he does not drink. He also states that he users heroin and other medications that he purchases on the street. Objective - Vital Signs/Intake and Output Vital Signs (last 24 hours): Temp Pulse Resp BP Pulse Ox 98.6 F 91 H 20 179/105 H 96 07/19/17 07:59 07/19/17 12:07 07/19/17 12:07 07/19/17 12:07 07/19/17 07:59 Intake and Output: 07/19/17 07/19/17 06:59 18:59 Intake Total 620 Output Total 800 Balance -180 - Medications Medications: Current Medications Chlordiazepoxide (Librium) 25 mg PO Q6 [facility] PRN Reason: Taper Stop: 07/22/17 23:59 Last Admin: 07/19/17 11:07 Dose: 25 mg Enoxaparin Sodium (Lovenox) 40 mg SC DAILY [facility] Last Admin: 07/19/17 11:11 Dose: Not Given Lactated Ringer's (Lactated Ringer's) 1,000 mls @ 200 mls/hr IV .Q5H [facility] Last Admin: 07/19/17 14:25 Dose: Not Given Pantoprazole Sodium (Protonix Inj) 40 mg IVP DAILY [facility] Last Admin: 07/19/17 11:00 Dose: 40 mg - Labs Labs: 07/19/17 07:38 07/19/17 07:38 PT 12.2 SECONDS (9.7-12.2) 07/19/17 10:51 INR 1.1 07/19/17 10:51 - Constitutional Appears: No Acute Distress, In Acute Distress, Agitated - Head Exam Head Exam: ATRAUMATIC, NORMAL INSPECTION - Eye Exam Eye Exam: EOMI - ENT Exam ENT Exam: Mucous Membranes Moist - Respiratory Exam Respiratory Exam: Clear to Ausculation Bilateral, NORMAL BREATHING PATTERN. absent: Respiratory Distress - Cardiovascular Exam Cardiovascular Exam: Tachycardia, REGULAR RHYTHM, +S1, +S2 - GI/Abdominal Exam GI & Abdominal Exam: Soft, Tenderness, Normal Bowel Sounds. absent: Distended, Firm, Guarding - Extremities Exam Extremities Exam: Normal Inspection. absent: Calf Tenderness - Back Exam Back Exam: NORMAL INSPECTION. absent: CVA tenderness (L), CVA tenderness (R) - Neurological Exam Neurological Exam: Alert, Awake, CN II-XII Intact. absent: Oriented x3 Additional comments: In active withdrawal - Psychiatric Exam Psychiatric exam: Anxious - Skin Skin Exam: Diaphoretic, Warm Assessment and Plan - Assessment and Plan (Free Text) Assessment: Alcohol withdrawal * Psych consulted help appreciated * Librium taper * Thiamine and Folic acid IV * will resume PO multivitamin when can tolerate PO * seizure/aspiration precautions Transaminitis * Gi consulted, Dr. Tolliver help appreciated * likely secondary to alcohol abuse * hepatitis panel: negative * Monitor trend * Note: patient is on librium taper for alcohol withdrawal * Alcohol elevated 316 on admission * f/u abd US and CT Uncontrolled Hypertension * History of noncompliance on PO antihypertensives * Given amlodipine 10mg today with no changs in BP * GIven one dose of enalapril IV will monitor BP Pancreatits * Lipase 851 on admission * IV fluids Hyperlipidemia * Will continue to hold simvastatin as patient's LFTs are elevated; LFTs improving Renal Cyst * Found on CT * F/U renal US Heroin withdrawal * Psych consulted help appreciated Nicotine withdrawal * Psy consulted help appreciated Prophylaxis * Activity as tolerated * Protonix 40mg IVP daily * Lovenox 40mg SC daily * Liquid diet All management per Dr. Eusebio Martinez
[2017-07-19] MEDS ORDERED: Thiamine 100 mg/ml Inj IV ONE (15:58)
--- NOTE | 2017-07-19 16:49 | US ---
HISTORY: abdominal pain, eval liver parenchyma COMPARISON: July 19, 2017. CT abdomen and pelvis None. TECHNIQUE: Sonographic evaluation of the abdomen. FINDINGS: LIVER: Measures 17.9 cm. Hepatopedal blood flow. Fatty infiltration manifest ultrasonographically as increased echogenicity of the liver parenchyma. No mass. No intrahepatic bile duct dilatation. GALLBLADDER: Cholelithiasis. Negative study for gallbladder wall thickening, pericholecystic fluid, sonographic Ortega's sign. COMMON BILE DUCT: Measures 5.2 mm. No stones. No dilatation. PANCREAS: Obscured by overlying bowel gas. Non diagnostic assessment of the pancreas RIGHT KIDNEY: Measures 4.7 x 11.8cm. Normal echogenicity. No calculus, mass, or hydronephrosis. LEFT KIDNEY: Measures 5.6 x 11.7cm. Normal echogenicity. No calculus, mass, or hydronephrosis. Incidental finding(s): Simple cyst lower pole 1.5 x 1.8 cm SPLEEN: Obscured by overlying bowel gas. Non diagnostic assessment of the spleen. AORTA: No aneurysmal dilatation. IVC: Unremarkable. OTHER FINDINGS: None. IMPRESSION: Hepatic steatosis without focal abnormality. Cholelithiasis. No sonographic evidence of acute cholecystitis. Limitations of the current examination: Nondiagnostic assessment of the spleen and most of the pancreas.
--- NOTE | 2017-07-19 17:04 | CARD ---
APPROVED REPORT EKG Measurement Heart [id number] MD [id number] <Conclusion> Normal sinus rhythm Possible Left atrial enlargement Prolonged QT Abnormal ECG
[2017-07-19] MEDS ORDERED: Potassium Chloride 20 mEq ER Tab PO STA (18:12)
--- NOTE | 2017-07-19 18:18 | CP.PCM.HP ---
Past Patient History - Infectious Disease Hx of Infectious Diseases: None - Past Medical History & Family History Past Medical History?: Yes - Past Social History Smoking Status: Heavy Smoker > 10 Cigarettes Daily - CARDIAC Hx Cardiac Disorders: Yes Hx Hypercholesterolemia: Yes Hx Hypertension: Yes - PULMONARY Hx Respiratory Disorders: No - NEUROLOGICAL Hx Neurological Disorder: Yes Hx Seizures: Yes (absence seizures) - HEENT Hx HEENT Problems: No - RENAL Hx Chronic Kidney Disease: No - ENDOCRINE/METABOLIC Hx Endocrine Disorders: No - HEMATOLOGICAL/ONCOLOGICAL Hx Blood Disorders: No - INTEGUMENTARY Hx Dermatological Problems: No - MUSCULOSKELETAL/RHEUMATOLOGICAL Hx Musculoskeletal Disorders: Yes Hx Falls: Yes - GASTROINTESTINAL Hx Gastrointestinal Disorders: No - GENITOURINARY/GYNECOLOGICAL Hx Genitourinary Disorders: No - PSYCHIATRIC Hx Psychophysiologic Disorder: Yes Hx Anxiety: Yes Hx Depression: Yes Hx Substance Use: Yes (Snorts Heroin.) - SURGICAL HISTORY Hx Surgeries: No Other/Comment: no further information provided by patients - ANESTHESIA Hx Anesthesia: No Hx Anesthesia Reactions: No Hx Malignant Hyperthermia: No Has any member of the family had a problem w/ anesthesia?: No Meds Allergies/Adverse Reactions: Allergies Allergy/AdvReac Type Severity Reaction Status Date / Time No Known Allergies Allergy Verified 01/31/17 19:47 Physical Exam - Constitutional Appears: Well - Head Exam Head Exam: ATRAUMATIC, NORMAL INSPECTION, NORMOCEPHALIC - Eye Exam Eye Exam: EOMI, Normal appearance, PERRL Pupil Exam: NORMAL ACCOMODATION, PERRL - Neck Exam Neck exam: Positive for: Normal Inspection - Respiratory Exam Respiratory Exam: Decreased Breath Sounds - Cardiovascular Exam Cardiovascular Exam: REGULAR RHYTHM, +S1, +S2 - GI/Abdominal Exam GI & Abdominal Exam: Diminished Bowel Sounds, Soft - Rectal Exam Rectal Exam: Deferred Results - Vital Signs Recent Vital Signs: Last Vital Signs Temp 98.6 F 07/19/17 14:00 Pulse 78 07/19/17 14:00 Resp 20 07/19/17 14:00 BP 138/92 H 07/19/17 17:00 Pulse Ox 96 07/19/17 14:00 - Labs Result Diagrams: 07/19/17 07:38 07/19/17 07:38 Labs: Laboratory Results - last 24 hr 07/18/17 07/18/17 07/19/17 19:17 19:17 07:38 WBC 5.9 RBC 5.04 Hgb 16.1 Hct 45.4 MCV 90.0 MCH 32.0 H MCHC 35.5 RDW 14.0 Plt Count 130 MPV 9.2 Neut % (Auto) 63.9 Lymph % (Auto) 21.9 [place] % (Auto) 10.7 H Eos % (Auto) 2.5 Baso % (Auto) 1.0 Neut # (Auto) 3.8 Lymph # (Auto) 1.3 [place] # (Auto) 0.6 Eos # (Auto) 0.1 Baso # (Auto) 0.1 PT INR Sodium Potassium Chloride Carbon Dioxide Anion Gap BUN Creatinine Est GFR ( Amer) Est GFR (Non-Af Amer) Random Glucose Calcium Total Bilirubin Direct Bilirubin AST ALT Alkaline Phosphatase Total Protein Albumin Globulin Albumin/Globulin Ratio Triglycerides Cholesterol LDL Cholesterol Direct HDL Cholesterol Amylase Lipase Urine Color Yellow Urine Clarity Clear Urine pH 5.0 Ur Specific [place] 1.013 Urine Protein 2+ H Urine Glucose (UA) Normal Urine Ketones Negative Urine Blood Trace H Urine Nitrate Negative Urine Bilirubin Negative Urine Urobilinogen 2.0 Ur Leukocyte Esterase Neg Urine WBC (Auto) 1 Urine RBC (Auto) < 1 Ur Squamous Epith Cells < 1 Urine Bacteria Occ H Hyaline Casts 0-2 Urine Opiates Screen Positive H Urine Methadone Screen Positive H Ur Barbiturates Screen Negative Ur Phencyclidine Scrn Negative Ur Amphetamines Screen Negative U Benzodiazepines Scrn Negative U Oth Cocaine Metabols Negative U Cannabinoids Screen Negative IgG Hepatitis A IgM Ab Hep Bs Antigen Hep B Core IgM Ab Hepatitis C Antibody 07/19/17 07/19/17 07/19/17 07:38 07:52 10:51 WBC RBC Hgb Hct MCV MCH MCHC RDW Plt Count MPV Neut % (Auto) Lymph % (Auto) [place] % (Auto) Eos % (Auto) Baso % (Auto) Neut # (Auto) Lymph # (Auto) [place] # (Auto) Eos # (Auto) Baso # (Auto) PT 12.2 INR 1.1 Sodium 139 Potassium 3.4 L Chloride 99 Carbon Dioxide 27 Anion Gap 16 BUN 6 L Creatinine 0.7 L Est GFR ( Amer) > 60 Est GFR (Non-Af Amer) > 60 Random Glucose 91 Calcium 8.1 L Total Bilirubin 2.4 H Direct Bilirubin 0.7 H AST 163 H D ALT 116 H D Alkaline Phosphatase 67 Total Protein 8.0 Albumin 3.8 Globulin 4.2 H Albumin/Globulin Ratio 0.9 L Triglycerides Cholesterol LDL Cholesterol Direct HDL Cholesterol Amylase 196 H Lipase 432 H Urine Color Urine Clarity Urine pH Ur Specific [place] Urine Protein Urine Glucose (UA) Urine Ketones Urine Blood Urine Nitrate Urine Bilirubin Urine Urobilinogen Ur Leukocyte Esterase Urine WBC (Auto) Urine RBC (Auto) Ur Squamous Epith Cells Urine Bacteria Hyaline Casts Urine Opiates Screen Urine Methadone Screen Ur Barbiturates Screen Ur Phencyclidine Scrn Ur Amphetamines Screen U Benzodiazepines Scrn U Oth Cocaine Metabols U Cannabinoids Screen IgG Hepatitis A IgM Ab Negative Hep Bs Antigen Negative Hep B Core IgM Ab Negative Hepatitis C Antibody Negative 07/19/17 07/19/17 10:51 10:51 WBC RBC Hgb Hct MCV MCH MCHC RDW Plt Count MPV Neut % (Auto) Lymph % (Auto) [place] % (Auto) Eos % (Auto) Baso % (Auto) Neut # (Auto) Lymph # (Auto) [place] # (Auto) Eos # (Auto) Baso # (Auto) PT INR Sodium Potassium Chloride Carbon Dioxide Anion Gap BUN Creatinine Est GFR ( Amer) Est GFR (Non-Af Amer) Random Glucose Calcium Total Bilirubin Direct Bilirubin AST ALT Alkaline Phosphatase Total Protein Albumin Globulin Albumin/Globulin Ratio Triglycerides 91 D Cholesterol 344 H LDL Cholesterol Direct 183 H HDL Cholesterol 142 H Amylase Lipase Urine Color Urine Clarity Urine pH Ur Specific [place] Urine Protein Urine Glucose (UA) Urine Ketones Urine Blood Urine Nitrate Urine Bilirubin Urine Urobilinogen Ur Leukocyte Esterase Urine WBC (Auto) Urine RBC (Auto) Ur Squamous Epith Cells Urine Bacteria Hyaline Casts Urine Opiates Screen Urine Methadone Screen Ur Barbiturates Screen Ur Phencyclidine Scrn Ur Amphetamines Screen U Benzodiazepines Scrn U Oth Cocaine Metabols U Cannabinoids Screen IgG 1871.3 H Hepatitis A IgM Ab Hep Bs Antigen Hep B Core IgM Ab Hepatitis C Antibody
[2017-07-20] MEDS: Lactated Ringer's 1,000 ML IV SCH ×5 (05:02→21:01)
[2017-07-20] MEDS: Morphine 4 MG/ML VIAL IVP PRN (05:10)
--- NOTE | 2017-07-20 07:42 | CP.PCM.PN ---
<Kael Rene - Last Filed: 07/20/17 12:22> Subjective - Date & Time of Evaluation Date of Evaluation: 07/20/17 Time of Evaluation: 07:00 - Subjective Subjective: PGY5 GI Fellow Progress Note Patient seen and examined bedside this morning. Admits to cramping suprapubic abdominal pain overnight and this morning. Had 4 bouts of very loose, watery stool. Denies fever, chills, nausea, vomiting. Slightly more appetite today. 12 system ROS performed and negative except where stated. Objective - Vital Signs/Intake and Output Vital Signs (last 24 hours): Temp Pulse Resp BP Pulse Ox 97.9 F 77 20 153/82 H 97 07/19/17 23:40 07/20/17 00:00 07/19/17 23:40 07/19/17 23:40 07/19/17 23:40 Intake and Output: 07/20/17 07/20/17 06:59 18:59 Output Total 1000 Balance -1000 - Medications Medications: Current Medications Chlordiazepoxide (Librium) 25 mg PO TID [facility] PRN Reason: Taper Stop: 07/22/17 23:59 Last Admin: 07/19/17 18:15 Dose: 25 mg Enoxaparin Sodium (Lovenox) 40 mg SC DAILY [facility] Last Admin: 07/19/17 11:11 Dose: Not Given Lactated Ringer's (Lactated Ringer's) 1,000 mls @ 200 mls/hr IV .Q5H [facility] Last Admin: 07/20/17 05:02 Dose: 200 mls/hr Folic Acid 1 mg/ Sodium (Chloride) 100.2 mls @ 60 mls/hr IV DAILY [facility] Morphine Sulfate (Morphine) 1 mg IVP Q6 PRN PRN Reason: Pain, severe (8-10) Last Admin: 07/20/17 05:10 Dose: 1 mg Pantoprazole Sodium (Protonix Inj) 40 mg IVP DAILY [facility] Last Admin: 07/19/17 11:00 Dose: 40 mg - Labs Labs: 07/19/17 07:38 07/19/17 07:38 PT 12.2 SECONDS (9.7-12.2) 07/19/17 10:51 INR 1.1 07/19/17 10:51 - Constitutional Appears: Non-toxic, No Acute Distress - Eye Exam Eye Exam: EOMI, PERRL - ENT Exam ENT Exam: Mucous Membranes Moist - Respiratory Exam Respiratory Exam: Clear to Ausculation Bilateral. absent: Rales, Rhonchi, Wheezes - Cardiovascular Exam Cardiovascular Exam: RRR, +S1, +S2 - GI/Abdominal Exam GI & Abdominal Exam: Soft, Tenderness (suprapubic), Normal Bowel Sounds. absent : Distended, Firm, Guarding, Rigid, Organomegaly - Extremities Exam Extremities Exam: Normal Inspection. absent: Pedal Edema - Neurological Exam Neurological Exam: Alert, Awake, Oriented x3 - Psychiatric Exam Psychiatric exam: Normal Affect, Normal Mood - Skin Skin Exam: Dry, Warm Assessment and Plan - Assessment and Plan (Free Text) Assessment: lizzette is a 47yo male with PMHx significant for EtOH abuse/dependece, heroin abuse, EtOH withdrawal seizures, HTN, dyslipidemia who presented to the hospital brought in by his for two witnessed seizures -Seizure activity - possibly 2/2 EtOH withdrawal -Mild acute pancreatitis -EtOH intoxication/withdrawal -Opiate withdrawal -Acute alcoholic hepatitis -EtOH abuse/dependence -Opiate abuse/dependence Plan: -CT A/P and U/S reviewed - no evidence of cirrhosis or pancreatitis per imaging/ today's clinical examination -Patient's initial pain complaints and elevated lipase (close to 3x ULN) consistent with mild resolving pancreatitis; no evidence of disease on CT imaging -Would decrease IVF to maintenance dosage if not tolerating PO; D/C once tolerating -MDF<32, thus no plan for steroid use for alcoholic hepatitis -Continue to trend LFTs -Suspect diarrhea/cramping suprapubic pain are a result of opiate/EtOH withdrawal syndrome -Awaiting autoimmune markers -Hepatitis serologies negative -Antiepileptics/withdrawal protocol per primary team -EtOH/opiate cessation -Psychiatric consultation requested -Advance diet as tolerated <Lazaro Tolliver - Last Filed: 07/20/17 14:41> Objective - Vital Signs/Intake and Output Vital Signs (last 24 hours): Temp Pulse Resp BP Pulse Ox 98.4 F 108 H 20 159/102 H 96 07/20/17 07:15 07/20/17 13:00 07/20/17 07:15 07/20/17 07:15 07/20/17 07:15 Intake and Output: 07/20/17 07/20/17 06:59 18:59 Intake Total 1700 Output Total 1400 Balance 300 - Medications Medications: Current Medications Amlodipine Besylate (Norvasc) 10 mg PO DAILY [facility] Chlordiazepoxide (Librium) 25 mg PO TID [facility] PRN Reason: Taper Stop: 07/22/17 23:59 Last Admin: 07/20/17 13:37 Dose: 25 mg Enoxaparin Sodium (Lovenox) 40 mg SC DAILY [facility] Last Admin: 07/20/17 10:10 Dose: Not Given Lactated Ringer's (Lactated Ringer's) 1,000 mls @ 200 mls/hr IV .Q5H [facility] Last Admin: 07/20/17 13:27 Dose: 200 mls/hr Folic Acid 1 mg/ Sodium (Chloride) 100.2 mls @ 60 mls/hr IV DAILY [facility] Last Admin: 07/20/17 10:00 Dose: 60 mls/hr Morphine Sulfate (Morphine) 1 mg IVP Q6 PRN PRN Reason: Pain, severe (8-10) Last Admin: 07/20/17 05:10 Dose: 1 mg Pantoprazole Sodium (Protonix Inj) 40 mg IVP DAILY [facility] Last Admin: 07/20/17 10:00 Dose: 40 mg Thiamine HCl (Vitamin B1 Tab) 100 mg PO DAILY [facility] - Labs Labs: 07/20/17 07:58 07/20/17 07:58 PT 12.2 SECONDS (9.7-12.2) 07/19/17 10:51 INR 1.1 07/19/17 10:51 Attending/Attestation - Attestation I have personally seen and examined this patient.: Yes I have fully participated in the care of the patient.: Yes I have reviewed all pertinent clinical information, including history, physical exam and plan: Yes Notes (Text): 07/20/17 14:36 I have seen and examined patient with GI fellow. No acute events overnight, he is seen resting in bed comfortably. His abdominal pain has significant improved and he denies nausea, vomiting. He does report onset of multiple episodes of loose bowel movements today. Tolerating PO diet without difficulty. Review of vitals from today shows elevated BP. Polysubstance abuse Transaminitis, ETOH pancreatitis HTN Seizure disorder - Advance to low fat diet as tolerated - Obtain stool studies given loose bowel movements - LFTs stable, continue to monitor. Awaiting autoimmune panel testing. - CT imaging reviewed by me showing no focal pancreatic abnormalities - ETOH cessation counseling - No further planned GI intervention, will sign off case. Suggest additional outpatient follow up along with age appropriate screening colonoscopy in AA population. Please reconsult as necessary, thank you.
[2017-07-20 08:27] LABS: BASO # 0.1 K/uL (0.0-0.2); HEMOGLOBIN 16.1 g/dL (12.0-18.0); MEAN PLATELET VOLUME 9.6 fL (7.2-11.7); MONO # 0.9 K/uL (0.0-0.8); NRBC % 0.1 % (0.0-2.0)
[2017-07-20 08:47] LABS: ALB/GLOB RATIO 0.8 (1.0-2.1); ALBUMIN 3.5 g/dL (3.5-5.0); ALT/SGPT 76 U/L (21-72); AST/SGOT 89 U/L (17-59); BLOOD UREA NITROGEN 6 mg/dL (9-20); GFR AFRICAN-AMERICAN > 60; GFR NON-AFRICAN AMERICAN > 60
[2017-07-20 08:56] LABS: BASO % 0.9 % (0.0-2.0); EOS # 0.1 K/uL (0.0-0.7); EOS % 1.7 % (0.0-4.0); LYMPH # 1.2 K/uL (1.0-4.3); LYMPH % 16.3 % (20.0-40.0); MEAN CORPUSCULAR HEMOGLOBIN 31.4 pg (27.0-31.0); MEAN CORPUSCULAR HGB CONC 34.9 g/dL (33.0-37.0); MONO % 12.5 % (0.0-10.0); NEUT # 4.9 K/uL (1.8-7.0); NEUT % 68.6 % (50.0-75.0); RBC 5.11 Mil/uL (4.40-5.90); WHITE BLOOD COUNT 7.1 K/uL (4.8-10.8)
[2017-07-20] MEDS: Enoxaparin 40 mg Syringe SC SCH ×2 (10:00→10:10)
--- NOTE | 2017-07-20 13:41 | PCM.PSYCH ---
Initial Psychiatric Evaluation - Initial Psychiatric Evaluation Type of Admission: Voluntary Legal Status: Capacity Chief Complaint (in patient's own words): Consult for substance use History of Present Illness and Precipitating Events: Patient was seen, chart reviewed, and discussed with nurse. This is a 47 year old AA male, who lives with girlfriend, who came to ED on 2017 for two seizures. Patient has history of seizure disorder following at TBI 8 years ago. Patient has history of alcohol use disorder and opioid use disorder. According to ED record, patient states he has seizures when he is going through withdrawals. Patient's alcohol level in ED was 316. Patient consumes eight 24oz of beer per day for the past 9 years. Patient also snorts 13 bags of heroin per day. Patient is currently having withdrawal symptoms, such as tremors and diarrhea. According to patient, he attended detox at [facility] in March 2017 and was sober for 1.5 months before he started using again. Patient states he feels a little depressed and wants to quit using. Patient denies anxiety, sundial ideation, hallucinations, or paranoia. Patient denies past psychiatric hospitalization. medical history: Seizure Disorder psych history: Alcohol Use Disorder Social history: Currently lives with girlfriend, who is clean. Patient states he does not work, he is on disability. Patient denies marijuana and cocaine use. Patient smokes cigarettes 1PPD. Current Medications: Active Medications Generic Name Dose Route Start Last Admin Trade Name Freq PRN Reason Stop Dose Admin Chlordiazepoxide 25 mg 07/19/17 00:00 07/20/17 10:00 Librium PO 07/22/17 23:59 25 mg TID [facility] Administration Taper Enoxaparin Sodium 40 mg 07/19/17 10:00 07/20/17 10:10 Lovenox SC Not Given DAILY [facility] Lactated Ringer's 1,000 mls @ 200 mls/hr 07/19/17 09:15 07/20/17 13:27 Lactated Ringer's IV 200 mls/hr .Q5H [facility] Administration Folic Acid 1 mg/ Sodium 100.2 mls @ 60 mls/hr 07/20/17 10:00 07/20/17 10:00 Chloride IV 60 mls/hr DAILY [facility] Administration Morphine Sulfate 1 mg 07/19/17 20:15 07/20/17 05:10 Morphine IVP 1 mg Q6 PRN Administration Pain, severe (8-10) Pantoprazole Sodium 40 mg 07/19/17 10:00 07/20/17 10:00 Protonix Inj IVP 40 mg DAILY [facility] Administration Past Psychiatric History - Past Psychiatric History Previous Treatment History: None History of ETOH/Drug Use: Alcohol Use Disorder Opioid Use Disorder Pertinent Medical Hx (Current Medical&Sleep Prob, Allergies): Allergies Allergy/AdvReac Type Severity Reaction Status Date / Time No Known Allergies Allergy Verified 01/31/17 19:47 No Known Home Med 07/18/17 Review of Systems - Review of Systems All systems: reviewed and no additional remarkable complaints except - Psychiatric Psychiatric: Depression. absent: Anxiety, Auditory Hallucinations, Hallucinations, Paranoia, Suicidal Ideation, Visual Hallucinations Mental Status Examination - Personal Presentation Personal Presentation: Looks stated age - Affect Affect: Broad - Motor Activity Motor Activity: Calm - Reliability in Providing Information Reliability in Providing Information: Fair - Speech Speech: Organized - Mood Mood: Neutral - Formal Thought Process Formal Thought Process: No Impairment - Obsessions/Compulsions Obsessions: No Compulsions: No - Cognitive Functions Orientation: Person, Place, Situation Sensorium: Alert Attention/Concentration: Attentive Estimate of Intelligence: Below average - Risk Risk: Withdrawal - Strength & Assets Inventory Strength & Assets Inventory: Family support DSM 5 DX - DSM 5 DSM 5 Diagnosis: Alcohol Use Disorder, severe Alcohol Withdrawal Opioid Use Disorder, severe - Recommended/Plan of Treatment Treatment Recommendations and Plan of Treatment: Continue Librium taper As needed medications All risks, benefits and alternatives of the meds discussed, and the pt agreed and understood. Supportive therapy and psychoeducation
[2017-07-20] MEDS ORDERED: Potassium Chloride 20 mEq ER Tab PO ONE (14:10)
--- NOTE | 2017-07-20 14:14 | CP.PCM.PN ---
Subjective - Date & Time of Evaluation Date of Evaluation: 07/20/17 Time of Evaluation: 14:11 - Subjective Subjective: PGY2 progress note for Dr. Martinez Pt seen and examined at bedside. No acute events overnight. Pt continues to c/ o slight epigastric abd pain radiating to umbilical area. Denies having any N/V /F/C. Per nurse, pt has had 4 episodes fo loose watery diarrhea. Denies having any CP, SOB. Objective - Vital Signs/Intake and Output Vital Signs (last 24 hours): Temp Pulse Resp BP Pulse Ox 98.4 F 108 H 20 159/102 H 96 07/20/17 07:15 07/20/17 13:00 07/20/17 07:15 07/20/17 07:15 07/20/17 07:15 Intake and Output: 07/20/17 07/20/17 06:59 18:59 Intake Total 1700 Output Total 1400 Balance 300 - Medications Medications: Current Medications Chlordiazepoxide (Librium) 25 mg PO TID [facility] PRN Reason: Taper Stop: 07/22/17 23:59 Last Admin: 07/20/17 13:37 Dose: 25 mg Enoxaparin Sodium (Lovenox) 40 mg SC DAILY [facility] Last Admin: 07/20/17 10:10 Dose: Not Given Lactated Ringer's (Lactated Ringer's) 1,000 mls @ 200 mls/hr IV .Q5H [facility] Last Admin: 07/20/17 13:27 Dose: 200 mls/hr Folic Acid 1 mg/ Sodium (Chloride) 100.2 mls @ 60 mls/hr IV DAILY [facility] Last Admin: 07/20/17 10:00 Dose: 60 mls/hr Morphine Sulfate (Morphine) 1 mg IVP Q6 PRN PRN Reason: Pain, severe (8-10) Last Admin: 07/20/17 05:10 Dose: 1 mg Pantoprazole Sodium (Protonix Inj) 40 mg IVP DAILY [facility] Last Admin: 07/20/17 10:00 Dose: 40 mg Potassium Chloride (K-Dur 20 Meq Er Tab) 20 meq PO ONCE ONE Stop: 07/20/17 14:11 - Labs Labs: 07/20/17 07:58 07/20/17 07:58 PT 12.2 SECONDS (9.7-12.2) 07/19/17 10:51 INR 1.1 07/19/17 10:51 - Constitutional Appears: Non-toxic, No Acute Distress - Head Exam Head Exam: ATRAUMATIC - ENT Exam ENT Exam: Mucous Membranes Moist - Respiratory Exam Respiratory Exam: Clear to Ausculation Bilateral. absent: Rales, Rhonchi, Wheezes - Cardiovascular Exam Cardiovascular Exam: REGULAR RHYTHM, +S1, +S2. absent: Gallop, Rubs, Murmur - GI/Abdominal Exam GI & Abdominal Exam: Soft, Tenderness, Normal Bowel Sounds. absent: Distended, Firm, Guarding, Rigid, Organomegaly - Extremities Exam Extremities Exam: absent: Pedal Edema, Tenderness - Neurological Exam Neurological Exam: Alert, Awake, Oriented x3 - Psychiatric Exam Psychiatric exam: Normal Affect, Normal Mood - Skin Skin Exam: Dry, Intact, Normal Color, Warm Assessment and Plan - Assessment and Plan (Free Text) Assessment: Alcohol withdrawal * Psych consulted help appreciated * Librium [facility] * Thiamin, folic acid, multivitamin * seizure/aspiration precautions Transaminitis * Gi consulted, Dr. Tolliver help appreciated * likely secondary to alcohol abuse * hepatitis panel: negative * Autoimmune studies ordered, results pending * Note: patient is on librium taper for alcohol withdrawal * Alcohol elevated 316 on admission * CT abdomen showed no evidence of pancreatitis. Mild nonspecific enteritis involving loops of proximal jejunum. Cholelithiasis without cholecystitis * Abd US showed cholelithiasis without cholecystitis Uncontrolled Hypertension * History of noncompliance on PO antihypertensives * started on PO Norvasc 10 mg qd Pancreatits * Lipase 851 on admission * LR at 200 cc * Likely due to ETOH abuse but autoimmune studies pending. * CT abd showed no evidence of acute pancreatitis though Hyperlipidemia * Will continue to hold simvastatin as patient's LFTs are elevated; LFTs improving Renal Cyst * Found on CT * F/U renal US Heroin withdrawal * Psych consulted help appreciated Nicotine withdrawal * Psy consulted help appreciated Diarrhea * Stool studies ordered. Will continue to monitor * Pt started on CLD Prophylaxis * Activity as tolerated * Protonix 40mg IVP daily * Lovenox 40mg SC daily * Liquid diet All management per Dr. Eusebio Martinez
--- NOTE | 2017-07-20 18:55 | CP.PCM.PN ---
Subjective - Date & Time of Evaluation Date of Evaluation: 07/20/17 Time of Evaluation: 08:40 - Subjective Subjective: clinically same Objective - Vital Signs/Intake and Output Vital Signs (last 24 hours): Temp Pulse Resp BP Pulse Ox 98 F 93 H 20 144/91 H 97 07/20/17 15:20 07/20/17 15:46 07/20/17 15:20 07/20/17 15:20 07/20/17 15:20 Intake and Output: 07/20/17 07/20/17 06:59 18:59 Intake Total 1700 2600 Output Total 1400 Balance 300 2600 - Medications Medications: Current Medications Amlodipine Besylate (Norvasc) 10 mg PO DAILY [facility] Last Admin: 07/20/17 15:59 Dose: 10 mg Chlordiazepoxide (Librium) 25 mg PO TID [facility] PRN Reason: Taper Stop: 07/22/17 23:59 Last Admin: 07/20/17 17:22 Dose: 25 mg Enoxaparin Sodium (Lovenox) 40 mg SC DAILY [facility] Last Admin: 07/20/17 10:10 Dose: Not Given Lactated Ringer's (Lactated Ringer's) 1,000 mls @ 200 mls/hr IV .Q5H [facility] Last Admin: 07/20/17 15:37 Dose: Not Given Folic Acid 1 mg/ Sodium (Chloride) 100.2 mls @ 60 mls/hr IV DAILY [facility] Last Admin: 07/20/17 10:00 Dose: 60 mls/hr Morphine Sulfate (Morphine) 1 mg IVP Q6 PRN PRN Reason: Pain, severe (8-10) Last Admin: 07/20/17 05:10 Dose: 1 mg Pantoprazole Sodium (Protonix Inj) 40 mg IVP DAILY [facility] Last Admin: 07/20/17 10:00 Dose: 40 mg Thiamine HCl (Vitamin B1 Tab) 100 mg PO DAILY [facility] Last Admin: 07/20/17 14:40 Dose: 100 mg - Labs Labs: 07/20/17 07:58 07/20/17 07:58 PT 12.2 SECONDS (9.7-12.2) 07/19/17 10:51 INR 1.1 07/19/17 10:51 - Constitutional Appears: Well - Head Exam Head Exam: ATRAUMATIC, NORMAL INSPECTION, NORMOCEPHALIC - Eye Exam Eye Exam: EOMI, Normal appearance, PERRL Pupil Exam: NORMAL ACCOMODATION, PERRL - ENT Exam ENT Exam: Mucous Membranes Moist, Normal Exam - Neck Exam Neck Exam: Full ROM, Normal Inspection. absent: Lymphadenopathy - Respiratory Exam Respiratory Exam: Decreased Breath Sounds - Cardiovascular Exam Cardiovascular Exam: REGULAR RHYTHM, +S1, +S2 - GI/Abdominal Exam GI & Abdominal Exam: Soft, Diminished Bowel Sounds - Rectal Exam Rectal Exam: Deferred
[2017-07-21] MEDS: Lactated Ringer's 1,000 ML IV SCH ×5 (02:15→22:14)
[2017-07-21 07:44] LABS: ALB/GLOB RATIO 0.9 (1.0-2.1); ALBUMIN 3.7 g/dL (3.5-5.0); ALT/SGPT 64 U/L (21-72); AST/SGOT 72 U/L (17-59); BLOOD UREA NITROGEN 6 mg/dL (9-20); CALCIUM 9.1 mg/dl (8.6-10.4); GFR AFRICAN-AMERICAN > 60; GFR NON-AFRICAN AMERICAN > 60
[2017-07-21 07:48] LABS: BASO % 0.6 % (0.0-2.0); EOS # 0.1 K/uL (0.0-0.7); EOS % 2.1 % (0.0-4.0); LYMPH # 0.8 K/uL (1.0-4.3); MEAN CELL VOLUME 89.4 fL (80.0-94.0); MEAN CORPUSCULAR HEMOGLOBIN 31.5 pg (27.0-31.0); MEAN CORPUSCULAR HGB CONC 35.2 g/dL (33.0-37.0); MEAN PLATELET VOLUME 9.4 fL (7.2-11.7); MONO # 0.8 K/uL (0.0-0.8); MONO % 11.2 % (0.0-10.0); NEUT # 5.1 K/uL (1.8-7.0); NEUT % 74.1 % (50.0-75.0); NRBC % 0.2 % (0.0-2.0); RBC 5.08 Mil/uL (4.40-5.90); RED CELL DISTRIBUTION WIDTH 13.8 % (11.5-14.5); WHITE BLOOD COUNT 6.9 K/uL (4.8-10.8)
[2017-07-21] MEDS: Potassium Chloride 20 mEq ER Tab PO SCH (08:36)
[2017-07-21 09:46] LABS: C DIFF TOXIN A B NEGATIVE (NEGATIVE)
[2017-07-21] MEDS: Enoxaparin 40 mg Syringe SC SCH (10:11)
--- NOTE | 2017-07-21 13:00 | CP.PCM.PN ---
Subjective - Date & Time of Evaluation Date of Evaluation: 07/21/17 Time of Evaluation: 09:20 - Subjective Subjective: Medicine progress note for Dr. Martinez's service Patient seen and examined. No acute events overnight per nursing. Patient tolerating diet and states stools are formed rather than watery. Objective - Vital Signs/Intake and Output Vital Signs (last 24 hours): Temp Pulse Resp BP Pulse Ox 98.2 F 92 H 18 159/97 H 97 07/21/17 07:15 07/21/17 08:00 07/21/17 07:15 07/21/17 07:15 07/21/17 07:15 Intake and Output: 07/21/17 07/21/17 06:59 18:59 Intake Total 1600 Output Total 3400 Balance -1800 - Medications Medications: Current Medications Amlodipine Besylate (Norvasc) 10 mg PO DAILY [facility] Last Admin: 07/21/17 10:09 Dose: 10 mg Chlordiazepoxide (Librium) 25 mg PO BID [facility] PRN Reason: Taper Stop: 07/22/17 23:59 Last Admin: 07/21/17 10:09 Dose: 25 mg Enoxaparin Sodium (Lovenox) 40 mg SC DAILY [facility] Last Admin: 07/21/17 10:11 Dose: Not Given Lactated Ringer's (Lactated Ringer's) 1,000 mls @ 200 mls/hr IV .Q5H [facility] Last Admin: 07/21/17 11:22 Dose: Not Given Folic Acid 1 mg/ Sodium (Chloride) 100.2 mls @ 60 mls/hr IV DAILY [facility] Last Admin: 07/21/17 10:10 Dose: 60 mls/hr Morphine Sulfate (Morphine) 1 mg IVP Q6 PRN PRN Reason: Pain, severe (8-10) Last Admin: 07/20/17 05:10 Dose: 1 mg Pantoprazole Sodium (Protonix Inj) 40 mg IVP DAILY [facility] Last Admin: 07/21/17 10:09 Dose: 40 mg Potassium Chloride (K-Dur 20 Meq Er Tab) 40 meq PO BRK [facility] Last Admin: 07/21/17 08:36 Dose: 40 meq Thiamine HCl (Vitamin B1 Tab) 100 mg PO DAILY [facility] Last Admin: 07/21/17 10:09 Dose: 100 mg - Labs Labs: 07/21/17 07:15 07/21/17 07:15 PT 12.2 SECONDS (9.7-12.2) 07/19/17 10:51 INR 1.1 07/19/17 10:51 - Constitutional Appears: No Acute Distress - Head Exam Head Exam: ATRAUMATIC - ENT Exam ENT Exam: Mucous Membranes Moist - Respiratory Exam Respiratory Exam: Clear to Ausculation Bilateral - Cardiovascular Exam Cardiovascular Exam: +S1, +S2 - GI/Abdominal Exam GI & Abdominal Exam: Soft, Tenderness, Normal Bowel Sounds - Extremities Exam Extremities Exam: absent: Pedal Edema - Neurological Exam Neurological Exam: Alert, Awake - Psychiatric Exam Psychiatric exam: Normal Affect - Skin Skin Exam: Warm Assessment and Plan - Assessment and Plan (Free Text) Assessment: Alcohol withdrawal * Psych consulted help appreciated * Librium ZACHERY * Thiamin, folic acid, multivitamin * seizure/aspiration precautions Transaminitis * GI consulted, Dr. Tolliver help appreciated * likely secondary to alcohol abuse * hepatitis panel: negative * Autoimmune studies ordered: Smooth muscle Ab titer 1:20 * Note: patient is on librium taper for alcohol withdrawal * Alcohol elevated 316 on admission * CT abdomen showed no evidence of pancreatitis. Mild nonspecific enteritis involving loops of proximal jejunum. Cholelithiasis without cholecystitis * Abd US showed cholelithiasis without cholecystitis Uncontrolled Hypertension * History of noncompliance on PO antihypertensives * continue PO Norvasc 10 mg qd Pancreatits * Lipase 851 on admission * LR at 200 cc * Likely due to ETOH abuse but autoimmune studies pending. * CT abd showed no evidence of acute pancreatitis though Hyperlipidemia * Will continue to hold simvastatin as patient's LFTs are elevated; LFTs improving Renal Cyst * Found on CT * Abdominal ultrasound comments on 1.5 x 1.8cm left renal pole cyst Heroin withdrawal * Psych consulted help appreciated Nicotine withdrawal * Psych consulted, help appreciated Diarrhea * Stool studies ordered. Will continue to monitor * C. diff negative * Pt on heart healthy diet Prophylaxis * Activity as tolerated * Protonix 40mg IVP daily * Lovenox 40mg SC daily All management per Dr. Eusebio Martinez
[2017-07-21 16:23] LABS: FECAL LEUKOCYTES POSITIVE (NEGATIVE)
[2017-07-21 16:43] VITALS: RESP 20
--- NOTE | 2017-07-21 16:49 | CP.PCM.PN ---
Subjective - Date & Time of Evaluation Date of Evaluation: 07/21/17 Time of Evaluation: 09:20 - Subjective Subjective: clinically same Objective - Vital Signs/Intake and Output Vital Signs (last 24 hours): Temp Pulse Resp BP Pulse Ox 98.5 F 98 H 20 145/71 99 07/21/17 15:17 07/21/17 16:00 07/21/17 15:17 07/21/17 15:17 07/21/17 15:17 Intake and Output: 07/21/17 07/21/17 06:59 18:59 Intake Total 1600 2320 Output Total 3400 Balance -1800 2320 - Medications Medications: Current Medications Amlodipine Besylate (Norvasc) 10 mg PO DAILY [facility] Last Admin: 07/21/17 10:09 Dose: 10 mg Chlordiazepoxide (Librium) 25 mg PO BID [facility] PRN Reason: Taper Stop: 07/22/17 23:59 Last Admin: 07/21/17 10:09 Dose: 25 mg Enoxaparin Sodium (Lovenox) 40 mg SC DAILY [facility] Last Admin: 07/21/17 10:11 Dose: Not Given Lactated Ringer's (Lactated Ringer's) 1,000 mls @ 200 mls/hr IV .Q5H [facility] Last Admin: 07/21/17 11:22 Dose: Not Given Folic Acid 1 mg/ Sodium (Chloride) 100.2 mls @ 60 mls/hr IV DAILY [facility] Last Admin: 07/21/17 10:10 Dose: 60 mls/hr Morphine Sulfate (Morphine) 1 mg IVP Q6 PRN PRN Reason: Pain, severe (8-10) Last Admin: 07/20/17 05:10 Dose: 1 mg Pantoprazole Sodium (Protonix Ec Tab) 40 mg PO DAILY [facility] Potassium Chloride (K-Dur 20 Meq Er Tab) 40 meq PO BRK [facility] Last Admin: 07/21/17 08:36 Dose: 40 meq Thiamine HCl (Vitamin B1 Tab) 100 mg PO DAILY [facility] Last Admin: 07/21/17 10:09 Dose: 100 mg - Labs Labs: 07/21/17 07:15 07/21/17 07:15 PT 12.2 SECONDS (9.7-12.2) 07/19/17 10:51 INR 1.1 07/19/17 10:51 - Constitutional Appears: Well - Head Exam Head Exam: ATRAUMATIC, NORMAL INSPECTION, NORMOCEPHALIC - Eye Exam Eye Exam: EOMI, Normal appearance, PERRL Pupil Exam: NORMAL ACCOMODATION, PERRL - ENT Exam ENT Exam: Mucous Membranes Moist, Normal Exam - Neck Exam Neck Exam: Full ROM, Normal Inspection. absent: Lymphadenopathy - Respiratory Exam Respiratory Exam: Decreased Breath Sounds - Cardiovascular Exam Cardiovascular Exam: REGULAR RHYTHM, +S1, +S2 - GI/Abdominal Exam GI & Abdominal Exam: Soft, Diminished Bowel Sounds - Rectal Exam Rectal Exam: Deferred
[2017-07-22 01:06] VITALS: TEMP 98.1
[2017-07-22] MEDS: Lactated Ringer's 1,000 ML IV SCH ×2 (02:34→06:46)
[2017-07-22] MEDS: Morphine 4 MG/ML VIAL IVP PRN (06:45)
[2017-07-22 07:36] LABS: BASO # 0.1 K/uL (0.0-0.2); BASO % 0.6 % (0.0-2.0); EOS # 0.2 K/uL (0.0-0.7); EOS % 1.9 % (0.0-4.0); HEMOGLOBIN 15.6 g/dL (12.0-18.0); LYMPH # 1.2 K/uL (1.0-4.3); LYMPH % 14.3 % (20.0-40.0); MEAN CELL VOLUME 89.8 fL (80.0-94.0); MEAN CORPUSCULAR HEMOGLOBIN 31.9 pg (27.0-31.0); MEAN CORPUSCULAR HGB CONC 35.6 g/dL (33.0-37.0); MEAN PLATELET VOLUME 9.5 fL (7.2-11.7); MONO % 12.1 % (0.0-10.0); NEUT # 6.1 K/uL (1.8-7.0); NEUT % 71.1 % (50.0-75.0); NRBC % 0.2 % (0.0-2.0); RBC 4.89 Mil/uL (4.40-5.90); RED CELL DISTRIBUTION WIDTH 13.7 % (11.5-14.5); WHITE BLOOD COUNT 8.5 K/uL (4.8-10.8)
[2017-07-22 07:49] VITALS: BP 151/108; O2SAT 96
[2017-07-22 08:06] LABS: ALB/GLOB RATIO 0.9 (1.0-2.1); ALBUMIN 3.7 g/dL (3.5-5.0); ALT/SGPT 53 U/L (21-72); AST/SGOT 65 U/L (17-59); BLOOD UREA NITROGEN 8 mg/dL (9-20); CALCIUM 9.3 mg/dl (8.6-10.4); GFR AFRICAN-AMERICAN > 60; GFR NON-AFRICAN AMERICAN > 60; LIPASE 653 U/L (23-300)
[2017-07-22] MEDS: Potassium Chloride 20 mEq ER Tab PO SCH (09:21)
[2017-07-22] MEDS: Enoxaparin 40 mg Syringe SC SCH (09:26)
[2017-07-22] MEDS ORDERED: Pantoprazole 40 mg EC Tab PO SCH (10:00)
[2017-07-22 12:38] VITALS: PULSE 78
--- NOTE | 2017-07-22 13:07 | CP.PCM.PN ---
Subjective - Date & Time of Evaluation Date of Evaluation: 07/22/17 Time of Evaluation: 13:05 - Subjective Subjective: PGY2 progress note for Dr. Martinez Pt seen and examined at bedside. No acute events overnight. Pt states that he wants to leave the hospital. He is seen pacing around the room in anticipation of leaving. Patient denies having any CP, SOB, abd pain, N/V/D/C, F/C. 12 point ROS negative except for above mentioned. Objective - Vital Signs/Intake and Output Vital Signs (last 24 hours): Temp Pulse Resp BP Pulse Ox 98.1 F 78 20 151/108 H 96 07/22/17 07:00 07/22/17 12:37 07/22/17 07:00 07/22/17 07:00 07/22/17 07:00 Intake and Output: 07/22/17 07/22/17 06:59 18:59 Intake Total 3680 Output Total 3300 Balance 380 - Medications Medications: Current Medications Amlodipine Besylate (Norvasc) 10 mg PO DAILY [facility] Last Admin: 07/22/17 09:21 Dose: 10 mg Chlordiazepoxide (Librium) 25 mg PO DAILY [facility] PRN Reason: Taper Stop: 07/22/17 23:59 Last Admin: 07/22/17 09:21 Dose: 25 mg Clonidine HCl (Catapres) 0.1 mg PO Q8H [facility] Last Admin: 07/22/17 07:28 Dose: 0.1 mg Enoxaparin Sodium (Lovenox) 40 mg SC DAILY [facility] Last Admin: 07/22/17 09:26 Dose: Not Given Lactated Ringer's (Lactated Ringer's) 1,000 mls @ 200 mls/hr IV .Q5H [facility] Last Admin: 07/22/17 06:46 Dose: 200 mls/hr Folic Acid 1 mg/ Sodium (Chloride) 100.2 mls @ 60 mls/hr IV DAILY [facility] Last Admin: 07/22/17 09:20 Dose: 60 mls/hr Morphine Sulfate (Morphine) 1 mg IVP Q6 PRN PRN Reason: Pain, severe (8-10) Last Admin: 07/22/17 06:45 Dose: 1 mg Pantoprazole Sodium (Protonix Ec Tab) 40 mg PO DAILY [facility] Last Admin: 07/22/17 09:21 Dose: 40 mg Potassium Chloride (K-Dur 20 Meq Er Tab) 40 meq PO BRK [facility] Last Admin: 07/22/17 09:21 Dose: 40 meq Temazepam (Restoril) 15 mg PO HS [facility] Last Admin: 07/22/17 00:08 Dose: 15 mg Thiamine HCl (Vitamin B1 Tab) 100 mg PO DAILY [facility] Last Admin: 07/22/17 09:27 Dose: Not Given - Labs Labs: 07/22/17 07:19 07/22/17 07:19 PT 12.2 SECONDS (9.7-12.2) 07/19/17 10:51 INR 1.1 07/19/17 10:51 - Constitutional Appears: Non-toxic, No Acute Distress - Head Exam Head Exam: ATRAUMATIC - ENT Exam ENT Exam: Mucous Membranes Moist - Respiratory Exam Respiratory Exam: Clear to Ausculation Bilateral. absent: Rales, Rhonchi, Wheezes - Cardiovascular Exam Cardiovascular Exam: REGULAR RHYTHM, +S1, +S2. absent: Gallop, Rubs, Murmur - GI/Abdominal Exam GI & Abdominal Exam: Soft, Normal Bowel Sounds. absent: Firm, Guarding, Rigid, Tenderness, Organomegaly - Extremities Exam Extremities Exam: absent: Pedal Edema, Tenderness - Neurological Exam Neurological Exam: Alert, Awake, Oriented x3 - Psychiatric Exam Psychiatric exam: Normal Affect, Normal Mood - Skin Skin Exam: Dry, Intact, Normal Color, Warm Assessment and Plan - Assessment and Plan (Free Text) Assessment: Alcohol withdrawal * Psych consulted help appreciated * Librium ZACHERY * Thiamin, folic acid, multivitamin * seizure/aspiration precautions Transaminitis * GI consulted, Dr. Tolliver help appreciated * likely secondary to alcohol abuse * hepatitis panel: negative * Autoimmune studies ordered: Smooth muscle Ab titer 1:20 * Note: patient is on librium taper for alcohol withdrawal * Alcohol elevated 316 on admission * CT abdomen showed no evidence of pancreatitis. Mild nonspecific enteritis involving loops of proximal jejunum. Cholelithiasis without cholecystitis * Abd US showed cholelithiasis without cholecystitis Uncontrolled Hypertension * History of noncompliance on PO antihypertensives * continue PO Norvasc 10 mg qd Pancreatits * Lipase 851 on admission * LR at 200 cc * Likely due to ETOH abuse but autoimmune studies pending. * CT abd showed no evidence of acute pancreatitis though Hyperlipidemia * Will continue to hold simvastatin as patient's LFTs are elevated; LFTs improving Renal Cyst * Found on CT * Abdominal ultrasound comments on 1.5 x 1.8cm left renal pole cyst Heroin withdrawal * Psych consulted help appreciated Nicotine withdrawal * Psych consulted, help appreciated Diarrhea * Stool studies ordered. Will continue to monitor * C. diff negative * Pt on heart healthy diet Prophylaxis * Activity as tolerated * Protonix 40mg IVP daily * Lovenox 40mg SC daily All management per Dr. Eusebio Martinez Patient signed out AMA by chronic care nurse resident.
--- NOTE | 2017-07-22 19:25 | CP.PCM.PN ---
Subjective - Date & Time of Evaluation Date of Evaluation: 07/22/17 Objective - Vital Signs/Intake and Output Vital Signs (last 24 hours): Temp Pulse Resp BP Pulse Ox 98.1 F 78 20 151/108 H 96 07/22/17 07:00 07/22/17 12:37 07/22/17 07:00 07/22/17 07:00 07/22/17 07:00 - Labs Labs: 07/22/17 07:19 07/22/17 07:19 PT 12.2 SECONDS (9.7-12.2) 07/19/17 10:51 INR 1.1 07/19/17 10:51
== END 2017-07-22 13:19 | disposition left against medical advice (07) | DRG 743 ==
LOC: C.ER 13:10 → C.9E 22:13 → C.6T 23:03
PROVIDERS: ADMIT Internal Medicine Nephrology; ATTEND Internal Medicine Nephrology
PROC: HZ2ZZZZ Detoxification Services for Substance Abuse Treatment (ICD-10-PCS; principal; 2017-07-18)
DX: F10.230 Alcohol dependence with withdrawal, uncomplicated (principal); F11.23 Opioid dependence with withdrawal; F17.213 Nicotine dependence, cigarettes, with withdrawal; G40.909 Epilepsy, unspecified, not intractable, without status epilepticus; I10 Essential (primary) hypertension; E78.5 Hyperlipidemia, unspecified; I25.10 Atherosclerotic heart disease of native coronary artery without angina pectoris; K52.9 Noninfective gastroenteritis and colitis, unspecified; K70.10 Alcoholic hepatitis without ascites; N28.1 Cyst of kidney, acquired; Z91.14 Patient's other noncompliance with medication regimen; Z91.19 Patient's noncompliance with other medical treatment and regimen; F10.229 Alcohol dependence with intoxication, unspecified; Y90.8 Blood alcohol level of 240 mg/100 ml or more